=== PATIENT | female | born 1945 | race Caucasian/White ===

== ENCOUNTER 2023-08-20 12:49 | Day surgery (SDC) | payer MEDICARE, SELFPAY ==
--- NOTE | 2023-08-20 12:58 | US_ITS ---
The [address] [address] Patient Name: SHADI CEDENO MRN: [id number] date: 1945 Sex: F Assigned Patient Location: US Current Patient Location: Accession/Order Number: [id number] Exam Date: 08/20/2023 13:02 Report Date: 08/20/2023 15:27 At the request of: ABEL PYLE Procedure: US biopsy thyroid EXAMINATION: US biopsy thyroid, US biopsy FNA add lesion HISTORY: thyroid nodule COMPARISON: No relevant comparison available. TECHNIQUE: After obtaining informed consent, an ultrasound-guided biopsy was performed in the usual sterile manner. FINDINGS: NODULE #1: IMAGING: Ultrasound BIOPSY NEEDLE: 25-gauge 2 inch SPECIMEN TYPE, #, LOCATION: 3 fine-needle aspirates, 1.2 cm left thyroid nodule with microcalcifications MEDICATION: 2 cc 1% buffered lidocaine COMPLICATIONS: None. LABORATORY: Pathology and molecular testing is pending OTHER: Negative. NODULE #2: IMAGING: Ultrasound BIOPSY NEEDLE: 25-gauge 2 inch SPECIMEN TYPE, #, LOCATION: 3 fine-needle aspirates, 2.7 x 3.5 cm right thyroid nodule MEDICATION: 2 cc 1% buffered lidocaine COMPLICATIONS: None. LABORATORY: Pathology and molecular testing is pending OTHER: Negative. US/US biopsy thyroid IMPRESSION: Uneventful ultrasound guided biopsy of 2 separate thyroid nodules, one on the right and 1 on the left. The patient was instructed to obtain follow up care and biopsy results from the referring physician. Electronically authenticated by: SUSAN SCHILLING Date: 08/20/2023 15:27
--- NOTE | 2023-08-20 13:02 | US_ITS ---
The [address] [address] Patient Name: SHADI CEDENO MRN: [id number] date: 1945 Sex: F Assigned Patient Location: US Current Patient Location: Accession/Order Number: [id number] Exam Date: 08/20/2023 13:02 Report Date: 08/20/2023 15:27 At the request of: ABEL PYLE Procedure: US biopsy FNA add lesion EXAMINATION: US biopsy thyroid, US biopsy FNA add lesion HISTORY: thyroid nodule COMPARISON: No relevant comparison available. TECHNIQUE: After obtaining informed consent, an ultrasound-guided biopsy was performed in the usual sterile manner. FINDINGS: NODULE #1: IMAGING: Ultrasound BIOPSY NEEDLE: 25-gauge 2 inch SPECIMEN TYPE, #, LOCATION: 3 fine-needle aspirates, 1.2 cm left thyroid nodule with microcalcifications MEDICATION: 2 cc 1% buffered lidocaine COMPLICATIONS: None. LABORATORY: Pathology and molecular testing is pending OTHER: Negative. NODULE #2: IMAGING: Ultrasound BIOPSY NEEDLE: 25-gauge 2 inch SPECIMEN TYPE, #, LOCATION: 3 fine-needle aspirates, 2.7 x 3.5 cm right thyroid nodule MEDICATION: 2 cc 1% buffered lidocaine COMPLICATIONS: None. LABORATORY: Pathology and molecular testing is pending OTHER: Negative. US/US biopsy FNA add lesion IMPRESSION: Uneventful ultrasound guided biopsy of 2 separate thyroid nodules, one on the right and 1 on the left. The patient was instructed to obtain follow up care and biopsy results from the referring physician. Electronically authenticated by: SUSAN SCHILLING Date: 08/20/2023 15:27
[2023-08-20] MEDS: LIDOCAINE HCL 10 ML, SODIUM BICARBONATE 1 MEQ INJ (15:16)
== END 2023-08-20 14:00 | disposition home or self-care (01) ==
LOC: US 12:50
PROVIDERS: Radiology Diagnostic Radiology; PCP Internal Medicine; Visit Provider Otolaryngology
DX: E04.1 Nontoxic single thyroid nodule (principal)
CPT/HCPCS: 10005; 10006; 88173

== ENCOUNTER 2025-02-28 08:28 | Outpatient (OUT) | payer MEDICARE, SELFPAY ==
--- NOTE | 2025-02-28 08:38 | MR_ITS ---
The [address] [address] Patient Name: SHADI CEDENO MRN: [id number] date: 1945 Sex: F Assigned Patient Location: LAB Current Patient Location: LAB Accession/Order Number: [id number] Exam Date: 02/28/2025 15:29 Report Date: 02/28/2025 15:36 At the request of: NON-STAFF PHYSICIAN Procedure: MR pelvis wo/w con MRI OF THE PELVIS WITH AND WITHOUT CONTRAST: CLINICAL HISTORY: History of cervical cancer, vaginal bleeding COMPARISON: Vaginal bleeding. History of cervical cancer. TECHNIQUE: Multisequence, multiplanar imaging of the pelvis was obtained before and after the use of IV contrast. FINDINGS: The uterus is atrophic measuring 4.2 x 1.8 x 3.2 cm. The myometrium is heterogenous in echotexture without definitive measurable fibroid. Endometrium is not clearly seen but does not appear to be thickened. No gross cervical mass is noted. Vagina is grossly unremarkable. Ovaries are not visualized. Small amount of free fluid seen within the pelvis. There appears be partially visualized right-sided hydroureter with a questionable obstructive or enhancing mass at the level of the right UVJ. No lymphadenopathy is seen. Urinary bladder is unremarkable. Urethra is unremarkable. Visualized small bowel appears nondilated. Visualized colon demonstrate no focal abnormality. Osseous structures demonstrate degenerative change without focal lesion. MR/MR pelvis wo/w con IMPRESSION: ATROPHIC UTERUS WITHOUT FOCAL ABNORMALITY. OVARIES NOT VISUALIZED. NO ADNEXAL MASS. PARTIALLY VISUALIZED RIGHT-SIDED HYDROURETER WITH POTENTIAL OBSTRUCTING ENHANCING MASS AT THE RIGHT UVJ. CORRELATION WITH CYSTOSCOPY IS SUGGESTED. SMALL AMOUNT OF FREE FLUID SEEN WITHIN THE PELVIS OF UNCERTAIN ETIOLOGY. Impression dictated by: Koby Torres Jr., D.O. 02/28/2025 3:36 PM Dictation Location: [place] [address] Electronically authenticated by: [id number] Y Date: 02/28/2025 15:36
--- OUTSIDE RECORDS SUMMARY | 2025-02-28 08:42 | XMS_ITS | CCD ---
Author Organization [facility] CliniSymi Care Team Providers Care Wall Taper Name Role Phone LASHANDA, DR ROMAN Consulting Unavailable TIMMIS, DR ROMAN Attending Unavailable TIMMIS, DR ROMAN Admitting Unavailable LETY, DR RODRIGUEZ Consulting Unavailable WEST, DR SUSAN Brady Consulting Unavailable TIMMIS, DR ROMAN Consulting Unavailable LETY, DR RODRIGUEZ Primary Care Unavailable TIMMIS, DR ROMAN Attending Unavailable TIMMIS, DR ROMAN Admitting Unavailable ZIEBER, DR CHARLY Nesbitt Consulting Unavailable ZIEBER, DR CHARLY Nesbitt Consulting Unavailable LETY, DR RODRIGUEZ Primary Care Unavailable JOHANA GLASER Attending Unavailable JOHANA GLASER Admitting Unavailable JOHANA GLASER Consulting Unavailable LETY, DR RODRIGUEZ Primary Care Unavailable ROXIE LAGOS Consulting Unavailable ROXIE LAGOS Attending Unavailable ROXIE LAGOS Admitting Unavailable Paulino Ramirez Consulting Unavailable MD Abel Pyle Jr Attending Provider Drew Castillo MD Unavailable Drew Nuno MD Primary Care Provider Abel Pyle Jr Attending Unavailable Abel Pyle Jr Admitting Unavailable Drew Nuno MD Unavailable ABEL PYLE Referring Unavailable JOHANA GLASER Primary Care Unavailable ABEL PYLE Referring Unavailable JOHANA GLASER Primary Care Unavailable Unavailable Primary Care Provider Unavailabl e ABEL PYLE Attending Unavailable NEIL VAZQUEZ Attending Unavailable ABEL PYLE Attending Unavailable NEIL VAZQUEZ Attending Unavailable NEIL VAZQUEZ Referring Unavailable DREW NUNO Attending Unavailable TORY HAND Attending Unavailable DREW NUNO II Referring Unavailable Medications Current Medications Medication Drug Class(es) Dates Sig (Normalized) Sig (Original) amLODIPine 10 mg oral tablet (16 sources) Dihydropyridine Calcium Channel Thang Start: 12-14-2023 End: 12-22-2024 take 1 tablet by mouth once daily amLODIPine (NORVASC) 10 mg tablet Take 10 mg by mouth once daily. 08/14/2023 Active iv contrast (will be provided with radiology test) (1 source) Start: 02-01-2025 End: 02-02-2025 iv contrast (will be provided with radiology test) Indications: History of cervical cancer , Vaginal bleeding , Vaginal adhesions MRI Female Pelvis Inject, intravenously, once for 1 dose. No IV access, insert saline lock prior to the beginning of sedation, infusion, injection of imaging exam. Discontinue saline lock post exam. If Pt has a central line or IVAD, may access for administration according to line specific nursing protocol. Once exam is complete flush line and de-access according to line specific nursing protocol in the MR contrast administration guidelines link. 1 each 02/01/2025 02/02/2025 Active lisinopril 10 mg oral tablet (20 sources) Angiotensin Converting Enzyme Inhibitor Start: 07-22-2023 End: 09-16-2023 lisinopril (ZESTRIL) 10 mg tablet Take by mouth. 08/14/2023 Active methIMAzole 5 mg oral tablet (16 sources) Thyroid Hormone Synthesis Inhibitor Start: 04-20-2023 methIMAzole (TAPAZOLE) 5 mg tablet Take 5 mg by mouth. 08/14/2023 Active Surgical Lubricant Jelly gel (3 sources) Start: 02-01-2025 Surgical Lubricant Jelly gel Indications: History of cervical cancer , Vaginal bleeding , Vaginal adhesions For MRI Female Pelvis, MRI department to provide. Administer intra-vaginal Surgilube immediately prior the MRI procedure (total amount to patient toleranace). 5 g 02/01/2025 Active Problems Active Problems Problem Classification Problem Date Documented Da te Episodic/Chronic Anal and rectal conditions (1 source) Radiation proctitis; Translations: [Radiation proctitis] 02-01-2025 Episodic Cancer of cervix (10 sources) Malignant neoplasm of endocervix; Translations: [Malignant neoplasm of endocervix] Onset: 06-04-2016 09-19-2024 Chronic Cancer of cervix (4 sources) History of malignant neoplasm of cervix; Translations: [Personal history of malignant neoplasm of cervix uteri] Onset: 02-01-2025 02-01-2025 Episodic Cardiac dysrhythmias (20 sources) Premature atrial contraction; Translations: [Atrial premature depolarization] Onset: 07-22-2023 07-22-2023 Chronic Essential hypertension (13 sources) Essential hypertension; Translations: [Essential (primary) hypertension] Onset: 07-22-2023 07-22-2023 Chronic Genitourinary symptoms and ill-defined conditions (1 source) Urinary incontinence; Translations: [Other specified urinary incontinence] 02-01-2025 Chronic Hemorrhoids (1 source) Hemorrhoids; Translations: [Unspecified hemorrhoids] 02-01-2025 Episodic Nutritional deficiencies (10 sources) Malnutrition (calorie); Translations: [Moderate protein-calorie malnutrition] Onset: 07-09-2016 09-19-2024 Chronic Other female genital disorders (2 sources) Vaginal bleeding; Translations: [Abnormal uterine and vaginal bleeding, unspecified] 02-01-2025 Chronic Other female genital disorders (2 sources) Vaginal adhesions; Translations: [Stricture and atresia of vagina] 02-01-2025 Episodic Other screening for suspected conditions (not mental disorders or infectious disease) (13 sources) Ultrasound scan abnormal; Translations: [Abnormal findings on diagnostic imaging of other specified body structures] Onset: 07-22-2023 07-22-2023 Chronic Other screening for suspected conditions (not mental disorders or infectious disease) (5 sources) Encounter for screening mammogram for malignant neoplasm of breast; Translations: [Screening due] Onset: 10-10-2021 Episodic Residual codes; unclassified (1 source) Family history of malignant neoplasm of trachea, bronchus and lung; Translations: [FAM HX MALIG NEOPLSM TRACH BRON LNG] Onset: 10-14-2021 Episodic Thyroid disorders (20 sources) Thyrotoxicosis, unspecified without thyrotoxic crisis or storm; Translations: [Nontoxic single thyroid nodule] Onset: 11-26-2020 Chronic Past or Other Problems Problem Classification Problem Date Documented Da te Episodic/Chronic Abdominal pain (3 sources) Lower abdominal pain, unspecified; Translations: [LOWER ABDOMINAL PAIN UNSPECIFIED] Onset: 04-27-2021 Episodic Calculus of urinary tract (1 source) Calculus of ureter; Translations: [CALCULUS OF URETER] Onset: 04-29-2021 Episodic Results Test Name Value Interpretation [facility] ([facility]) MEENU HOLDER ([id number]) 1945 F Date Time Provider Department 02/09/25 TORY HAND During your visit today, we recorded the following information about you: Tory Hand APRN.KAYLIE 02/09/2025 11:29 AM Signed Called patient to advise of negative pap results and + bacteria. Patient denies symptoms of odor or discharge. Advise to call if symptoms occur. No need to treat. Tory Hand APRN.KAYLIE Allergies As of Date: 02/09/2025 (No Known Allergies) Date Reviewed: 02/01/2025 Reviewed by: Aurora Santana MA - Fully Assessed Primary Visit Diagnosis:History of cervical cancer [Z85.41] Prescriptions as of 02/09/2025 - lisinopril (ZESTRIL) 10 mg tablet Take by mouth. - amLODIPine (NORVASC) 10 mg tablet Take 10 mg by mouth once daily. - methIMAzole (TAPAZOLE) 5 mg tablet Take 5 mg by mouth. - Surgical Lubricant Jelly gel For MRI Female Pelvis, MRI department to provide. Administer intra-vaginal Surgilube immediately prior the MRI procedure (total amount to patient toleranace). Problem List As Of Date 02/09/2025 Noted Resolved Cancer of endocervix (HCC) [C53.0] 06/04/2016 Malnutrition of moderate degree (HCC) [E44.0] 07/09/2016 Encounter Status:Closed by TORY HAND on 02/09/25 [facility] CNOVSPon 02-01-2025 CNOVSP Visit (SP) Office (GYNOSA) MEENU HOLDER ([id number]) 1945 F Date Time Provider Department 02/01/25 11:00 AM PEACE TORYNehal DUGGAN During your visit today, we recorded the following information about you: Temperature Pulse Respiration Blood pressure 97.6 degrees 65/minute 16/minute 138/75 Weight 54.7 kg Peace Tory, MARGARETH.LEARNING SUPPORT AIDE 02/01/2025 11:51 AM Signed DATE OF SERVICE: 02/01/2025 PROBLEM: Meenu Holder is a consult from Dr. Nuno for evaluation of history of cervical cancer. HPI: Ms. Holder is a 79 year old female who has a past medical history of Cervix cancer (HCC) (2017), HTN (hypertension), Hyperthyroidism, Multinodular goiter, PAC (premature atrial contraction), and Post-menopausal. HISTORY OF ILLNESS- 05/21/2016-[facility] cervical biopsies Dr. Rodriguez FINAL DIAGNOSIS 1. Endometrium, curettage (A) - Fragments of invasive moderately differentiated non-keratinizing squamous cell carcinoma. 2. Endocervix, curettage (B) - Fragments of moderately differentiated non-keratinizing squamous cell carcinoma. 1) Primary radiation with weekly cisplatin s/p 6 weeks s/p EBRT 54 Gy in 30 fx from 06/17/16 - 07/29/16, followed by 30 Gy in 5 fx from 07/30/2016 to 08/15/2016 Patient is a 79-year-old female with a history of stage IIB cervical cancer, who underwent primary chemoradiation therapy in 2017. She has been LENI since her last Pap test in 2019. She was referred back to our service by her PCP for continued follow-up after a routine exam. She reports no chest pain, shortness of breath, new abdominal pain, or vaginal bleeding. She does experience occasional diarrhea, which she manages with Imodium before meals, particularly when consuming certain foods. She also reports urinary frequency and nocturnal leakage, for which she wears a pad at night. She has not had a colonoscopy and has declined previous recommendations for one. IMAGING: CT CHEST: No results found. CT ABD/PELVIS: No results found. PET/CT 11/13/2016 IMPRESSION: 1. Significant positive response to interval therapy with decrease in size of cervical mass which now demonstrates no residual FDG hypermetabolism. 2. No evidence of FDG avid lymphadenopathy or distal metastatic disease. 3. New FDG uptake within the right upper sacrum corresponding to insufficiency fracture on recent MRI. 4. Slightly asymmetric FDG uptake within the tonsils avidity is exam, right greater than left, with overall decreased intensity compared to the prior study. This is is likely reactive/inflammatory in nature. Clinical correlation recommended. 5. Additional findings on low-dose CT as above. LABS: No data to display PATHOLOGY: No results found for: FINALDIAGNOS HISTORIES: PAST GYNECOLOGIC HISTORY: OB History Gravida3 Para3 Term0 Preterm0 AB0 Living3 SAB0 IAB0 Ectopic0 Multiple0 Live Births0 LMP: No LMP recorded. Patient is postmenopausal. Hormonal contraceptives: N/A . HRT use: N/A . History of abnormal pap: Yes, see above Last pap/HPV: 07/18/2020 PAST SURGICAL HISTORY Procedure Laterality Date PAST SURGICAL HISTORY OF oral surgery PAST MEDICAL HISTORY Diagnosis Date Cervix cancer (HCC) 2016 HTN (hypertension) Hyperthyroidism Multinodular goiter PAC (premature atrial contraction) Post-menopausal FAMILY HISTORY Problem Relation Age of Onset other (Dementia) Mother Heart Father PA, Hypertension Sister Cancer Brother Lung cancer AND Heart disease, Cancer Paternal Grandfather Cancer Grandchild Family history of breast, ovarian, uterine or colon cancer: No Family history of VTE: No SOCIAL HISTORY Social History Tobacco Use Smoking status: Never Smokeless tobacco: Never Substance Use Topics Alcohol use: No Drug use: No Occupation: retired Marital Status: Single HEALTH MAINTENANCE: Last mammogram: 10/10/2021-negative Last colonoscopy: never? SUBJECTIVE/ROS: 02/01/25-Patient states she feels good overall. Patient reports no bowel or bladder issues. No bleeding, discharge, or pain. No shortness of breath, cough, or chest pain. Cardiovascular: (-) chest pain Respiratory: (-) shortness of breath Gastrointestinal: (+) diarrhea, (-) abdominal pain Genitourinary: (+) urinary frequency, (+) nocturnal urinary incontinence, (-) vaginal bleeding OBJECTIVE: VITALS: BP 138/75 Pulse 65 Temp 36.4 ?C (97.6 ?F) (Temporal) Resp 16 Wt 54.7 kg (120 lb 9.5 oz) SpO2 96% BMI 22.98 kg/m? GENERAL: Patient is a well developed, well nourished female. She is alert, oriented, pleasant, and cooperative. SKIN: Color, texture, turgor normal. No rashes or lesions. HEENT: Normocephalic, atraumatic, mucus membranes moist, and no lesions NECK: Supple, no adenopathy; thyroid symmetric, normal size, no bruits, Not examined LUNGS: Clear to auscultation bilat (more content not included)... Normal [facility] HIGH RISK HUMAN PAPILLOMA MECHE (HPV), PCR FOR DETECTION AND GENOTYPINGon 02-01-2025 HPV 16 Ag Ql (Unsp spec) Not detected Normal Not detected [facility] Comment on above: Order Comment: Speci men Type: FLUID SPECIMEN Ordering Facility: [facility] Address: [address] [place] [address] Performed By: #### H PVHRT #### [facility] CLIA [id number] [address] [place] [address] [place] HPV 18 Ag Ql (Unsp spec) Not detected Normal Not detected [facility] Comment on above: Order Comment: Speci glendy Type: FLUID SPECIMEN Ordering Facility: [facility] Address: [address] [place] [address] Performed By: #### H PVHRT #### [facility] CLIA [id number] [address] [place] [address] [place] HPV 31+33+35+39+45+51+5 2+56+58+59+66+68 DNA GIANNI+probe Ql (Cvx) Not detected Normal Not detected [facility] Comment on above: Order Comment: Speci men Type: FLUID SPECIMEN Ordering Facility: [facility] Address: [address] [place] [address] Result Comment: High Risk HPV Other Type includes HPV types 31, 33, 35, 39, 45, 51, 52, 56, 58, 59, 66 and 68. Performed By: #### H PVHRT #### [facility] CLIA [id number] [address] [place] [address] [place] PAP TESTon 02-01-2025 ADEQUACY Satisfactory for interpretation. Normal [facility] Comment on above: Order Comment: Speci men Type: FLUID SPECIMEN Ordering Facility: [facility] Address: [address] [place] [address] Performed By: #### L [id number] #### [facility] CLIA [id number] [address] [place] [address] [place] CASE REPORT Normal [facility] Comment on above: Order Comment: Speci men Type: FLUID SPECIMEN Ordering Facility: [facility] Address: [address] [place] [address] Result Comment: Gyne cologic Cytology Report Case: [id number] Authorizing Provider: Tory Hand APRN.LEARNING SUPPORT AIDE Collected: 02/01/2025 12:59 PM Ordering Location: Gynecology Oncology Received: 02/01/2025 01:01 PM First Screen: Quynh Corcoran, CT, ASCP Pathologist: Laine Capps MD Specimen: Pap Test, ThinPrep, Vagina Performed By: #### L [id number] #### [facility] CLIA [id number] [address] [place] [address] [place] CLINICAL HISTORY, CYTOLOGY, BUSINESS AND MARKETING TEACHER Normal [facility] Comment on above: Order Comment: Speci men Type: FLUID SPECIMEN Ordering Facility: [facility] Address: [address] [place] [address] Result Comment: Hist ory of Malignancy (Describe) Menopausal Radiation Therapy (Indicate Year) cervix cancer Performed By: #### L [id number] #### [facility] CLIA [id number] [address] [place] [address] [place] CYTOLOGY PAP OTHER INTERPRETATION Predominance of coccobacilli consistent with shift in vaginal claudia. Normal [facility] Comment on above: Order Comment: Speci men Type: FLUID SPECIMEN Ordering Facility: [facility] Address: [address] [place] [address] Performed By: #### L [id number] #### [facility] CLIA [id number] [address] [place] [address] [place] FINAL PERFORMING LAB Normal [facility] Comment on above: Order Comment: Speci men Type: FLUID SPECIMEN Ordering Facility: [facility] Address: [address] [place] [address] Result Comment: Tech nical component, extrusion process operator screening performed at: [facility], [address] [place] [address] [place] [address] CLIA: [id number] Diagnostic interpretation performed at: [facility], [address] [place], [place] [id number] CLIA# [id number] Fuel Cell Engineer: Brodie Amaya MD Performed By: #### L [id number] #### [facility] CLIA [id number] [address] [place] [address] [place] INTERPRETATION, CYTOLOGY, BUSINESS AND MARKETING TEACHER Normal [facility] Comment on above: Order Comment: Speci men Type: FLUID SPECIMEN Ordering Facility: [facility] Address: [address] [place] [address] Result Comment: Nega tive for intraepithelial lesion or malignancy. at 1709 EDT Performed By: #### L [id number] #### [facility] CLIA [id number] [address] [place] [address] [place] PAP DISCLAIMER COMMENT The Pap Smear is a screening test for cervical cancer. False negative results occur with all screening tests, emphasizing the need for rescreening at recommended intervals, and clinical correlation. Normal [facility] Comment on above: Order Comment: Speci men Type: FLUID SPECIMEN Ordering Facility: [facility] Address: [address] [place] [address] Performed By: #### L [id number] #### [facility] CLIA [id number] [address] [place], [place] [id number] [facility] PAP GARAGE DOOR OPENER INSTALLER COMMENT This specimen has been analyzed by the FDA-approved Buggl System, which uses digital imaging and an enhanced artificial intelligence image analysis algorithm to identify de la rosa of interest on the microscopic slide, to assist the live in caregiver and pathologist in evaluating cells on ThinPrep Pap tests. Following analysis, de la rosa of interest on the microscopic slide selected by the algorithm are reviewed by a live in caregiver. If a sample requires hierarchical review, the pathologist will review the same de la rosa of interest selected by the algorithm prior to final interpretation. Normal [facility] Comment on above: Order Comment: Speci men Type: FLUID SPECIMEN Ordering Facility: [facility] Address: [address] [place] [address] Performed By: #### L [id number] #### [facility] CLIA [id number] [address] [place] [address] OF [facility] 12-28-2024 [facility] MEENU [facility] ([id number]) 1945 F Date Time Provider Department 12/28/24 LUNA VARMA [facility] During your visit today, we recorded the following information about you: Miladis Johnson 12/28/2024 1:32 PM Signed Hi there, We had gotten a referral for Meenu from Dr. Nuno. Can you please review and see what she needs. Thank you. Miladis Bhakta 12/28/2024 2:58 PM Signed LM for patient to call back and confirm message for 01/25/25 at 1pm. Per Miladis Coy 12/29/2024 9:16 AM Signed Spoke to Meenu, confirmed date and time. Allergies As of Date: 12/28/2024 (No Known Allergies) Date Reviewed: 07/11/2020 Reviewed by: Monie Vizcarra (Rn), RN - Fully Assessed Problem List As Of Date 12/28/2024 Noted Resolved Cancer of endocervix (HCC) [C53.0] 06/04/2016 Malnutrition of moderate degree (HCC) [E44.0] 07/09/2016 Encounter Status:Closed by MILADIS JOHNSON on 12/28/24 Normal [facility] METABOLIC PANE Margarito 12-24-2024 Albumin [Mass/Vol] 4.4 g/dL Normal 3.6-5.1 [facility] Comment on above: Performed By: #### 7 600, [id number] #### [facility] [place] [address] Legal Associate: Kodi Woodall MD Albumin/Globulin [Mass ratio] 1.9 {ratio} Normal 1.0-2.5 [facility] Comment on above: Performed By: #### 7 600, [id number] #### [facility] [place] [address] Legal Associate: Kodi Woodall MD ALP [Catalytic activity/Vol] 81 U/L Normal 37-153 [facility] Comment on above: Performed By: #### 7 600, 84068 #### [facility] [place] [address] Legal Associate: Kodi Woodall MD ALT [Catalytic activity/Vol] 6 U/L Normal 6-29 [facility] Comment on above: Performed By: #### 7 600, 68136 #### [facility] [place] [address] Legal Associate: Kodi Woodall MD AST [Catalytic activity/Vol] 14 U/L Normal 10-35 [facility] Comment on above: Performed By: #### 7 600, 46136 #### [facility] [place] [address] Legal Associate: Kodi Woodall MD Bilirubin [Mass/Vol] 0.7 mg/dL Normal 0.2-1.2 [facility] Comment on above: Performed By: #### 7 600, 63320 #### [facility] [place] [address] Legal Associate: Kodi Woodall MD BUN/CREATININE RATIO SEE NOTE: Normal 6-22 [facility] Comment on above: Result Comment: Not Reported: BUN and Creatinine are within reference range. Performed By: #### 7 600, [id number] #### [facility] of [address], [address] [place] [address] Legal Associate: Kodi Woodall MD Calcium [Mass/Vol] 9.6 mg/dL Normal 8.6-10.4 [facility] Comment on above: Performed By: #### 7 600, 61253 #### [facility] [place] [address] Legal Associate: Kodi Woodall MD Chloride [Moles/Vol] 104 mmol/L Normal 98-110 [facility] Comment on above: Performed By: #### 7 600, 70910 #### [facility] [address], [address] [place] [address] Legal Associate: Kodi Woodall MD CO2 [Moles/Vol] 27 mmol/L Normal 20-32 [facility] Comment on above: Performed By: #### 7 600, 79884 #### [facility] [place] [address] Legal Associate: Kodi Woodall MD Creatinine [Mass/Vol] 0.92 mg/dL Normal 0.60-1.00 [facility] Comment on above: Performed By: #### 7 600, 32353 #### [facility] of [place] [address] Legal Associate: Kodi Woodall MD GFR/1.73 sq M.predicted among non-blacks MDRD (S/P/Bld) [Vol rate/Area] 64 mL/min/{1.73_m2} Normal > OR = 60 [facility] Comment on above: Performed By: #### 7 600, 32771 #### [facility] of [place] [address] Legal Associate: Kodi Woodall MD Globulin (S) [Mass/Vol] 2.3 g/dL Normal 1.9-3.7 [facility] Comment on above: Performed By: #### 7 600, 78112 #### [facility] of [place] [address] Legal Associate: Kodi Woodall MD Glucose [Mass/Vol] 93 mg/dL Normal 65-99 [facility] Comment on above: Result Comment: Fasting reference interval Performed By: #### 7 600, 45069 #### [facility] [place] [address] Legal Associate: Kodi Woodall MD Potassium [Moles/Vol] 3.8 mmol/L Normal 3.5-5.3 [facility] Comment on above: Performed By: #### 7 600, 12698 #### [facility] of [place] [address] Legal Associate: Kodi Woodall MD Protein [Mass/Vol] 6.7 g/dL Normal 6.1-8.1 [facility] Comment on above: Performed By: #### 7 600, 17055 #### [facility] of [place] [address] Legal Associate: Kodi Woodall MD Sodium [Moles/Vol] 140 mmol/L Normal 135-146 [facility] Comment on above: Performed By: #### 7 600, 23357 #### [facility] of [place] [address] Legal Associate: Kodi Woodall MD Urea nitrogen [Mass/Vol] 18 mg/dL Normal 7-25 [facility] Comment on above: Performed By: #### 7 600, 71320 #### [facility] of [place] [address] Legal Associate: Kodi Woodall MD LIPID PANEL, [facility] 05- Cholesterol [Mass/Vol] 214 mg/dL High <200 [facility] Comment on above: Order Comment: FASTI NG:NO FASTING: NO Performed By: #### 7 600, 14464 #### [facility] [place] [address] Legal Associate: Kodi Woodall MD Cholesterol in HDL [Mass/Vol] 69 mg/dL Normal > OR = 50 [facility] Comment on above: Order Comment: FASTI NG:NO FASTING: NO Performed By: #### 7 600, 35080 #### [facility] [address], [address] [place] [address] Legal Associate: Kodi Woodall MD Cholesterol in LDL [Mass/Vol] 129 mg/dL High [facility] Comment on above: Order Comment: FASTI NG:NO FASTING: NO Result Comment: Refe rence range: <100 Desirable range <100 mg/dL for primary prevention; <70 mg/dL for patients with CHD or diabetic patients with > or = 2 CHD risk factors. LDL-C is now calculated using the Jerson calculation, which is a validated novel method providing better accuracy than the Friedewald equation in the estimation of LDL-C. Vijay SS et al. ARIEL. 2013;310(19): 7330-4005 (http://education.WorkAmerica/faq/NGD261) Performed By: #### 7 600, [id number] #### [facility] [address], [address] [place] [address] Legal Associate: Kodi Woodall MD Cholesterol.total/C holesterol in HDL [Mass ratio] 3.1 {ratio} Normal <5.0 [facility] Comment on above: Order Comment: FASTI NG:NO FASTING: NO Performed By: #### 7 600, [id number] #### [facility] [place] [address] Legal Associate: Kodi Woodall MD NON HDL CHOLESTEROL 145 mg/dL (calc) High <130 [facility] Comment on above: Order Comment: FASTI NG:NO FASTING: NO Result Comment: For patients with diabetes plus 1 major ASCVD risk factor, treating to a non-HDL-C goal of <100 mg/dL (LDL-C of <70 mg/dL) is considered a therapeutic option. Performed By: #### 7 600, [id number] #### [facility] [address], [address] [place] [address] Legal Associate: Kodi Woodall MD Triglyceride [Mass/Vol] 65 mg/dL Normal <150 [facility] Comment on above: Order Comment: FASTI NG:NO FASTING: NO Performed By: #### 7 600, [id number] #### [facility] [address], [address] [place] [address] Legal Associate: Kodi Woodall MD US THYROIDon 09-20-2024 US THYROID US THYROID CLINICAL INFORMATION: Multinodular goiter; Thyroid nodule. TECHNIQUE: Real time sonography of the thyroid gland performed. COMPARISON: 01/11/2024 FINDINGS: Right Lobe Size: 5.5 x 2.4 x 2.7 cm Left Lobe Size: 5.0 x 1.9 x 1.4 cm Isthmus: 0.3 cm Nodules: 1.) Size: 1.8 x 2.0 x 1.1 cm Laterality: right Location: sup Composition: mixed cystic/solid Echogenicity: hypoechoic Taller than Wide: no Margins: smooth Echogenic Foci: no Total Points: 3 TI-RADS Level TR3, ultrasound follow-up in 2 year 2.) Size: 2.8 x 3.5 x 1.8 cm, measured slightly differently from prior, measuring 2.8 x 2.3 x 1.6 cm on manual remeasurement, unchanged Laterality: right Location: inf Composition: Mixed cystic/solid -1 Echogenicity: isoechoic - 1 Shape: Not taller than wide -0 Margins: Smooth - 0 Echogenic foci: None -0 ACR TI RADS risk category: TR2 (2) ACR TI RADS Recommendation: no further follow-up 3.) Size: 3.5 x 2.2 x 1.3 cm Laterality: right Location: med/sup Composition: Mixed cystic/solid -1 Echogenicity: isoechoic - 1 Shape: Not taller than wide -0 Margins: Smooth - 0 Echogenic foci: None -0 ACR TI RADS risk category: TR2 (2) ACR TI RADS Recommendation: no further follow-up 4.) Size: 1.0 x 1.1 x 0.5 cm Laterality: left Location: sup Composition: mixed cystic/solid Echogenicity: hypoechoic Taller than Wide: no Margins: smooth Echogenic Foci: no Total Points: 3 TI-RADS Level TR3, no follow-up needed 5.) Size: 1.2 x 0.8 x 0.6 cm Laterality: left Location: mid Composition: Mixed cystic/solid -1 Echogenicity: Hypoechoic - 2 Shape: Not taller than wide -0 Margins: Smooth - 0 Echogenic foci: None -0 ACR TI RADS risk category: TR3 (3) ACR TI RADS Recommendation: no further follow-up 6.) Size: 2.2 x 1.7 x 0.9 cm Laterality: left Location: med/inf Composition: Mixed cystic/solid -1 Echogenicity: Hypoechoic - 2 Shape: Not taller than wide -0 Margins: Smooth - 0 Echogenic foci: None -0 ACR TI RADS risk category: TR3 (3) ACR TI RADS Recommendation: Ultrasound follow-up 2 year 7.) Size: 1.3 x 1.1 x 0.4 cm Laterality: isthmus Location: left isthmus Composition: Spongiform, no dedicated follow-up needed IMPRESSION: Unchanged thyroid nodules, continued follow-up in 2 years is recommended. ACR TI-RADS recommendations: TR5 (greater than or equal to 7 points) - FNA if greater than or equal to 1cm, follow-up ultrasound if nodule is 0.5 - 0.9 cm every year for 5 years. TR4 (4 - 6 points) - FNA if greater than or equal to 1.5 cm, follow-up ultrasound if nodule is 1 -1.4 cm at 1, 2, 3 and 5 years. TR3 (3 points) - FNA if greater than or equal to 2.5 cm, follow-up ultrasound if nodule is 1.5 -2.4 cm at 1, 3 and 5 years. TR2 (2 points) & TR1 (0 points) - No FNA or follow-up. Finalized by Chucky Bejarano on 09/20/2024 10:[address] [facility] US THYROIDon 01-14-2024 US THYROID US THYROID CLINICAL INFORMATION: Thyroid nodule. TECHNIQUE: Real time sonography of the thyroid gland performed. COMPARISON: 06/24/2023 FINDINGS: Thyroid size: Normal Right thyroid lobe measures: 5.7 x 2.4 x 2.4 cm Left thyroid lobe measures: 1.5 x 2.0 cm Overall thyroid texture: Heterogeneous Nodule # 1 Maximum size/location: There is a 1.9 x 1.8 x 1.1 cm nodule right lobe of thyroid gland Composition: Mixed cystic/solid -1 Echogenicity: Hypoechoic - 2 Shape: Not taller than wide -0 Margins: Smooth - 0 Echogenic foci: None -0 Additional echogenic foci: None -0 Significant change in size (greater than 20% 2 dimensions): No Change in features: No Change in ACR TI RADS risk category: No ACR TI-RADS total points: 3 ACR TI RADS risk category: TR3 (3) ACR TI RADS Recommendation: Ultrasound follow-up 1 year Nodule # 2 Maximum size/location: There is a 2.3 x 2.6 x 1.8 cm nodule in the right lobe of thyroid gland Composition: Solid -2 Echogenicity: Hypoechoic - 2 Shape: Not taller than wide -0 Margins: Smooth - 0 Echogenic foci: None -0 Additional echogenic foci: None -0 Significant change in size (greater than 20% 2 dimensions): No Change in features: No Change in ACR TI RADS risk category: No ACR TI-RADS total points: 4 ACR TI RADS risk category: TR4 (4-6) ACR TI RADS Recommendation: Ultrasound follow-up 1 year Nodule # 3 Maximum size/location: There is a 2.9 x 2.6 x 1.6 and the nodule in the right lobe of the thyroid gland Composition: Solid -2 Echogenicity: isoechoic - 1 Shape: Not taller than wide -0 Margins: Smooth - 0 Echogenic foci: None -0 Additional echogenic foci: None -0 Significant change in size (greater than 20% 2 dimensions): No Change in features: No Change in ACR TI RADS risk category: No ACR TI-RADS total points: 3 ACR TI RADS risk category: TR3 (3) ACR TI RADS Recommendation: Ultrasound biopsy Nodule # 4 Maximum size/location: There is a 2.2 x 1.0 x 2.4 cm nodule in the left aspect of the isthmus Composition: Solid -2 Echogenicity: isoechoic - 1 Shape: Not taller than wide -0 Margins: Smooth - 0 Echogenic foci: None -0 Additional echogenic foci: None -0 Significant change in size (greater than 20% 2 dimensions): No Change in features: No Change in ACR TI RADS risk category: No ACR TI-RADS total points: 3 ACR TI RADS risk category: TR3 (3) ACR TI RADS Recommendation: Ultrasound follow-up 1 year Additional subcentimeter thyroid nodules are seen and can be followed with yearly ultrasound. IMPRESSION: * 2.9 cm TR 3 nodule right lobe of thyroid gland. Fine-needle aspiration is recommended. * 2.6 cm TR 4 nodule in the right lobe of thyroid gland. Fine-needle aspiration is recommended * Additional thyroid nodules seen scattered throughout the thyroid gland and appears stable. Yearly follow-up examinations recommended. ACR TI-RADS recommendations: TR5 (greater than or equal to 7 points) - FNA if greater than or equal to 1cm, follow-up ultrasound if nodule is 0.5 - 0.9 cm every year for 5 years. TR4 (4 - 6 points) - FNA if greater than or equal to 1.5 cm, follow-up ultrasound if nodule is 1 -1.4 cm at 1, 2, 3 and 5 years. TR3 (3 points) - FNA if greater than or equal to 2.5 cm, follow-up ultrasound if nodule is 1.5 -2.4 cm at 1, 3 and 5 years. TR2 (2 points) & TR1 (0 points) - No FNA or follow-up. Finalized by Susan Figueroa MD on 01/14/2024 10:18 AM [facility] 08-20-2023 L Specimen: [id number] Received: 08/24/23 [facility] [id number] Spec Type: Cytology Subm Dr: ABEL PYLE MD Tissues: A FNA SLIDES NOPATH (RT THYROID) B FNA SLIDES NOPATH (LT THRYOID) Procedures: Cyto Int and Re/2, Cyto Prepstain/2, PAPSTN/10 Age/ Patient Sex Location Account Attending Physician Meenu Holder 78/F LABELL [id number] ABEL PYLE MD SPEC NUM: [id number] RECD: 08/24/23 STATUS: JOSE MEDRANO NUM: [id number] MANUELITO: 08/20/23-[address]: ABEL PYLE MD ENTERED: 08/24/23-1010 [facility] DR: Yessica,Lab SPEC TYPE: Cytology DEPT: [facility] ENTERED BY: [id number] RECV BY: [id number] ORDERED: Cyto Int and Re/2, Cyto Prepstain/2, PAPSTN/10 ORDERED: Cyto Int and Re/2, Cyto Prepstain/2, PAPSTN/10 Supplemental Report Addendum 1 Entered: 09/14/23 Supplemental for findings of molecular testing from [facility] for part B specimen (left mid thyroid nodule): Ensemble portal administrator: Benign (risk of malignancy: <=4%) Expiration rodriguez: N/A Other classifiers: -MTC: Negative -Parathyroid: Negative Addendum Signed (signature on file) Mayte Valladares MD 09/14/23926 -------- -------- Specimen: [id number] Received: 08/24/23 Status: JOSE Medrano Num: [id number] Spec Type: Cytology Subm Dr: ABEL PYLE MD Tissues: A FNA SLIDES NOPATH (RT THYROID) B FNA SLIDES NOPATH (LT THRYOID) Procedures: Cyto Int and Re/2, Cyto Prepstain/2, PAPSTN/10 -------- Patient: Meenu Holder [id number] (Continued) -------- Specimen: [id number] Received: 08/24/23 (Continued) Signed (signature on file) Mayte Valladares MD 08/25/23 1644 -------- Specimen: [id number] Received: 08/24/23 Status: JO[facility] Medrano Num: [id number] Spec Type: Cytology Subm Dr: ABEL PYLE MD Tissues: A FNA SLIDES ILIANA (RT THYROID) B FNA SLIDES HOLLEYATH (LT THRYOID) Procedures: Cyto Int and Re/2, Cyto Prepstain/2, PAPSTN/10 -------- Patient: Meenu Holder [id number] (Continued) -------- Specimen: [id number] Received: 08/24/23-1008 (Continued) Pathological Diagnosis A. Right mid thyroid nodule, FNA cytology - Satisfactory for assessment - The [place] system is category 2: Benign - Many follicular cells in small and occasionally larger groups are present in all smears -Occasional lightly pigmented histiocytes, and occasional hemosiderin pigments, are also admixed - A ThinPrep smear is also reviewed, also showing similar findings - The apparently hypercellular smears also may suggest sampling of the hyperplastic nodule B. Left knee thyroid nodule, FNA cytology: - Adequate for assessment - The [place] system is suspicious for category 3: Suspicious follicular lesion of undetermined significance - Adequate numbers of follicular cells are present in at least 2 smears - The small groups of follicular cells are slightly more compact in one of the smears, and with the associated microacinar appearance, supporting the above interpretation - A ThinPrep smear is also reviewed, also showing similar findings Gross Description Received is A. 30 ml light pink clear fixed fluid said to have been obtained as Right mid thyroid nodule. Thin prep is prepared for microscopic examination. Also received are 4 smeared slides for microscopic examination.(CC/al) Received is B. 29 ml light fluid said to have been obtained as Left mid thyroid nodule. Thin prep is prepared for microscopic examination. -------- Specimen: [id number] Received: 08/24/23 Status: JO[facility] Medrano Num: [id number] Spec Type: Cytology Subm Dr: ABEL PYLE MD Tissues: A FNA SLIDES NOPATH (RT THYROID) B FNA SLIDES NOPATH (LT THRYOID) Procedures: Cyto Int and Re/2, Cyto Prepstain/2, PAPSTN/10 -------- Patient: Meenu Holder Delicia [id number] (Continued) -------- Specimen: [id number] Received: 08/24/23 (Continued) Gross Description (Continued) Signed (signature on file) Mayte Valladares MD 08/25/231643 (more content not included)... [facility] US Thyroidon 02-07-2022 US Thyroid FINDINGS: Right Lobe: 4.3 x 2.3 x 2.2 cm Left Lobe: 4.1 x 1.8 x 1.3 cm Isthmus (Thickness)9 mm Comparison made with prior examination most recent August 07, 2021. Minimal change from prior examinations including upper limits of normal thyroid volume, lobular contours, subtle areas of slight increase in vascularity. The largest T4 nodule remains within the isthmus right of midline, 2.7 x 1.6 x 2.4 cm, prior measurement 2.2 x 2.2 x 1.4 cm and 2.5 x 2.3 x 1.3 cm. IMPRESSION: 1. Stable thyroid appearance, TR4 nodule right of midline within the isthmus demonstrates minimal change in size accounting for slight difference in measuring technique, similar morphology. RECOMMENDATIONS CANCER RISK (ACR TI-RADS 2018) TR1: no FNA required TR1: 0.3% TR2: no FNA required TR2: 1.5 % TR3>: 1.5 cm follow up, >2.5 cm FNA TR3: 4.8 % Follow up 1, 3, 5 years TR4:>1.0 cm follow up >1.5 cm FNA TR4: 9.1 % Follow up: 1, 2, 3 and 5 years TR5:> 0.5 cm follow up, >1.0 cm FNA TR5: 35% Annual follow up for up to 5 years Biopsy is recommended for suspicious lesions (TR3-TR5) with the above size criteria. If there are multiple nodules, the two with the highest ACR TI-RADS grades should be sampled (rather than the two largest) Interval enlargement on follow up is felt to be significant if there is a increase of 20% and 2 mm in two dimensions, or a 50% increase in volume. If the ACR TI-RAD level increases between scans, and interval scan the following year is again recommended. Report reported and signed by Koby Garcia on 02/07/2022 1615 Normal [facility] Specialist Free T3on 10-10-2021 FT3 3.40 pg/mL Normal 2.00-4.40 [facility] Traffic Clerk Comment on above: Performed By: #### F T3, TSH, FT4, HEP #### [facility] [address] [place], [place] [id number] Free T4on 10-10-2021 Free T4 [Mass/Vol] 1.23 ng/dL Normal 0.80-1.80 [facility] Traffic Clerk Comment on above: Performed By: #### F T3, TSH, FT4, HEP #### [facility] [address] [place], [place] [id number] Hepatic Function Panelon Albumin [Mass/Vol] 4.5 g/dL Normal 3.6-5.1 [facility] Comment on above: Performed By: #### F T3, TSH, FT4, HEP #### [facility] [address], [place] [id number] Albumin/Globulin [Mass ratio] 2.0 {ratio} Normal 1.0-2.5 [facility] Comment on above: Performed By: #### F T3, TSH, FT4, HEP #### [facility] [address], [place] [id number] ALP [Catalytic activity/Vol] 85 U/L Normal 35-119 [facility] Comment on above: Performed By: #### F T3, TSH, FT4, HEP #### [facility] [address], [place] [id number] ALT [Catalytic activity/Vol] 11 U/L Normal 6-33 [facility] Comment on above: Result Comment: 07/03 Female reference range changed. Performed By: #### F T3, TSH, FT4, HEP #### [facility] [address], [place] [id number] AST [Catalytic activity/Vol] 15 U/L Normal 9-34 [facility] Comment on above: Performed By: #### F T3, TSH, FT4, HEP #### [facility] [address], [place] [id number] Bilirubin [Mass/Vol] 0.44 mg/dL Normal 0.30-1.20 [facility] Comment on above: Performed By: #### F T3, TSH, FT4, HEP #### [facility] [address], [place] [id number] DBIL <0.2 Normal [facility] Comment on above: Result Comment: Refe rence range change 06/19/2017. Prior reference range 0.1-0.3 mg/dL. Performed By: #### F T3, TSH, FT4, HEP #### [facility] [address], [place] [id number] Globulin (S) [Mass/Vol] 2.3 g/dL Normal 1.9-3.7 [facility] Comment on above: Performed By: #### F T3, TSH, FT4, HEP #### [facility] [address], [place] [id number] Protein [Mass/Vol] 6.8 g/dL Normal 6.1-8.1 [facility] Comment on above: Performed By: #### F T3, TSH, FT4, HEP #### [facility] [address], [place] [id number] Lipid Panelon 10-10-2021 Cholesterol [Mass/Vol] 210 mg/dL High 125-200 [facility] Comment on above: Result Comment: Low risk < 200mg/dL Borderline risk 201-239 mg/dl High risk > or equal to 240 Performed By: #### L IPD #### [facility] [address], [place] [id number] Cholesterol in HDL [Mass/Vol] 59 mg/dL Normal >40 [facility] Comment on above: Result Comment: High Cardiovascular Risk HDL <40 mg/dL Low Cardiovascular Risk HDL > or equal to 60 mg/dl Performed By: #### L IPD #### [facility] [address], [place] [id number] Cholesterol in LDL [Mass/Vol] 131 mg/dL Normal [facility] Comment on above: Result Comment: LDL ATP III CLASSIFICATION LDL less than 100 mg/dl Optimal LDL 100-129 mg/dl Near or above optimal LDL 130-159 Borderline high LDL 160-189 High LDL greater than 189 mg/dl Very High Performed By: #### L IPD #### [facility] [address], [place] [id number] Cholesterol in VLDL [Mass/Vol] 20 mg/dL Normal [facility] Comment on above: Performed By: #### L IPD #### [facility] [address], [place] [id number] Cholesterol.total/C holesterol in HDL [Mass ratio] 4 {ratio} Normal [facility] Comment on above: Performed By: #### L IPD #### [facility] [address], [place] [id number] Triglyceride [Mass/Vol] 98 mg/dL Normal 30-150 [facility] Traffic Clerk Comment on above: Result Comment: TRIG ATPIII CLASSIFICATIONS TRIG less than 150 mg/dl Normal TRIG 150-199 mg/dl Borderline High TRIG 200-500 mg/dl High TRIG greather than 500 mg/dl Very High Performed By: #### L IPD #### [facility] [address], [place] [id number] MG MAMM SCREEN 3D MERYL CADon 10-10-2021 MG MAMM SCREEN 3D MERYL CAD Patient: MEENU HOLDER Exam Date: 10/10/2021 : 1945 Gender:F Ordering : MRS. JOHANA GLASER [employer] Admission #: [id number] Family : Order #: [id number] CLICK HERE TO VIEW EXAM RADIOLOGY REPORT PROCEDURE: MAMMOGRAM SCREENING 3D BILATERAL CAD COMPARISON: MG MAMM SCREEN MERYL W CAD, 07/18/2020. INDICATIONS: Screening mammography Calculator Name NCI Breast Cancer Risk Assessment Tool 5 Year Breast Cancer Risk 1.60% Lifetime Breast Cancer Risk 3.70% Personal Breast Cancer No Personal Ovarian Cancer No Treatments 30 radiation treatments and chemotherapy Family Cancers Brother with lung cancer at age 63. LOCATION: [facility] BREAST COMPOSITION: Scattered areas fibroglandular density. FINDINGS: DIAGNOSTIC CATEGORY 1--NEGATIVE. RIGHT BREAST: No significant suspicious finding. No significant change has occurred. LEFT BREAST: No significant suspicious finding. No significant change has occurred. RECOMMENDATIONS: ROUTINE MAMMOGRAM AND CLINICAL EVALUATION IN 12 MONTHS. PLEASE NOTE: A NORMAL MAMMOGRAM DOES NOT EXCLUDE THE POSSIBILITY OF BREAST CANCER. A CLINICALLY SUSPICIOUS PALPABLE LUMP SHOULD BE BIOPSIED. Dictated by: Charly Walsh M.D. on 10/10/2021 at 15:28 Approved by: Charly Walsh M.D. on 10/10/2021 at 15:32 Normal [facility] TSHon 10-10-2021 TSH 4.030 uIU/mL Normal 0.400-4.500 [facility] Traffic Clerk Comment on above: Performed By: #### F T3, TSH, FT4, HEP #### [facility] [address], [place] [id number] US Thyroidon 08-07-2021 US Thyroid FINDINGS: Correlation made with prior examinations April 15, 2021, October 10, 2020. Right Lobe:4.5 x 2.2 x 2.0 cm Left Lobe:3.9 x 1.7 x 2.0 cm Isthmus (Thickness)8 mm (see below) Minimal change in thyroid volume with diffuse heterogeneous echotexture, overall similar lobular contours and no new nodule or mass. Largest TR4 nodule remains right of midline within the isthmus, currently measuring 2.2 x 2.2 x 1.4 cm (prior measurement October 10, 2020 2.5 x 2.3 x 1.3 cm), similar morphology and orientation. IMPRESSION: Stable thyroid appearance general heterogeneous echotexture and stable TR4 nodule, right of midline, isthmus. RECOMMENDATIONS:CANCE R RISK (ACR TI-RADS 2018) TR1: No FNA requiredTR1: 0.3% TR2: No FNA requiredTR2: 1.5% TR3: > 1.5 cm follow up, > 2.5 cm FNATR3: 4.8% Follow up: 1, 3 and 5 years TR4: > 1.0 cm follow up, > 1.5 cm FNATR4: 9.1% Follow up: 1, 2, 3 and 5 years TR5: > 0.5 cm follow up, > 1.0 cm FNATR5: 35% Annual follow up for up to 5 years Biopsy is recommended for suspicious lesions (TR3-TR5) with the above size criteria. If there are multiple nodules, the two with the highest ACR TI-RADS grades should be sampled (rather than the two largest). Interval enlargement on follow up is felt to be significant if there is an increase of 20% and 2 mm in two dimensions, or a 50% increase in volume. If the ACR TI-RADS level increased between scans, an interval scan the following year is again recommended. Report reported and signed by Koby Garcia on 08/08/2021 0708 Normal [facility] Traffic Clerk CBC AUTO DIFFon 04-27-2021 BASO # 0.0 103/ul Normal 0.0-0.1 [facility] Comment on above: Performed By: #### C BC #### [facility] [address] [place] [address] Dr. Melvin Valladares Basophils/100 WBC (Bld) 0.3 % Normal 0.2-2.0 [facility] Comment on above: Performed By: #### C BC #### [facility] [address] [place] [address] Dr. Melvin Valladares EO # 0.1 103/ul Normal 0.0-0.7 [facility] Comment on above: Performed By: #### C BC #### [facility] [address] [place] [address] Dr. Melvin Valladares Eosinophils/100 WBC (Bld) 0.9 % Normal 0.9-7.0 [facility] Comment on above: Performed By: #### C BC #### [facility] [address] [place] [address] Dr. Melvin Valladares Erythrocyte distribution width (RBC) [Ratio] 12.9 % Normal 11.0-15.0 [facility] Comment on above: Performed By: #### C BC #### [facility] [address] [place] [address] Dr. Melvin Valladares Hematocrit (Bld) [Volume fraction] 43.6 % Normal 36.0-48.0 [facility] Comment on above: Performed By: #### C BC #### [facility] [address] [place] [address] Dr. Melvin Valladares Hemoglobin (Bld) [Mass/Vol] 14.5 g/dL Normal 12.0-16.0 [facility] Comment on above: Performed By: #### C BC #### [facility] [address] [place] [address] Dr. Melvin Valladares IG # 0.02 10e3/ul Normal 0.00-0.03 [facility] Comment on above: Performed By: #### C BC #### [facility] [address] [place] [address] Dr. Melvin Valladares IG % 0.3 % Normal 0.0-0.5 [facility] Comment on above: Performed By: #### C BC #### [facility] [address] [place] [address] Dr. Melvin Valladares LYMPH # 1.2 103/ul Normal 1.2-3.8 [facility] Comment on above: Performed By: #### C BC #### [facility] [address] [place] [address] Dr. Melvin Valladares Lymphocytes/100 WBC (Bld) 16.5 % Critically low 20.5-60.0 [facility] Comment on above: Performed By: #### C BC #### [facility] [address] [place] [address] Dr. Melvin Valladares MANUAL DIFF REQ NO Normal [facility] Comment on above: Performed By: #### C BC #### [facility] [address] [place] [address] Dr. Melvin Valladares MCH (RBC) [Entitic mass] 29.7 pg Normal 26.7-34.0 [facility] Comment on above: Performed By: #### C BC #### [facility] [address] [place] [address] Dr. Melvin Valladares MCHC (RBC) [Mass/Vol] 33.3 g/dL Normal 29.9-35.2 [facility] Comment on above: Performed By: #### C BC #### [facility] [address] [place] [address] Dr. Melvin Valladares MCV (RBC) [Entitic vol] 89.3 fL Normal 81.0-99.0 [facility] Comment on above: Performed By: #### C BC #### [facility] [address] [place] [address] Dr. Melvin Valladares MONO # 0.7 103/ul Normal 0.3-0.8 [facility] Comment on above: Performed By: #### C BC #### [facility] [address] [place] [address] Dr. Melvin Valladares Monocytes/100 WBC (Bld) 9.2 % Normal 1.7-12.0 [facility] Comment on above: Performed By: #### C BC #### [facility] Laboratory [address] [place] [address] Dr. Melvin Valladares NEUT # 5.4 103/ul Normal 1.4-6.5 [facility] Comment on above: Performed By: #### C BC #### [facility] [address] [address] [address] Melvin Valladares Neutrophils/100 WBC (Bld) 72.8 % Normal 43.0-75.0 [facility] Comment on above: Performed By: #### C BC #### [facility] [address] [address] [address] Melvin Valladares Platelet mean volume (Bld) [Entitic vol] 10.4 fL Normal 9.5-13.5 [facility] Comment on above: Performed By: #### C BC #### [facility] [address] [address] [address] Melvin Valladares PLT 176 103/ul Normal 150-450 [facility] Comment on above: Performed By: #### C BC #### [facility] [address] [place] [address] Dr. Melvin Valladares RBC 4.88 106/ul Normal 4.20-5.40 [facility] Comment on above: Performed By: #### C BC #### [facility] [id number] Melvin Valladares WBC 7.4 103/ul Normal 4.0-11.0 [facility] Comment on above: Performed By: #### C BC #### [facility] [address] [place] [address] ABD/PELV W CONon 04-27-[address] ABD/PELV W CON EXAM: CT ABD/PELV W CON 04/27/2021 1:59 AM EDT OH001 CLINICAL STATEMENT: GENERALIZED ABDOMINAL PAIN COMPARISON: No prior studies are available at the time of dictation. TECHNIQUE: Helically acquired images were obtained of the abdomen and pelvis following 100 cc of Omnipaque 300 IV contrast. No oral contrast was administered. AEC is utilized. 2-D reconstructed images are provided. FINDINGS: There is a 5 mm right distal ureteric calculus with moderate severe right-sided hydronephrosis and hydroureter. Cholelithiasis may consider gallbladder ultrasound. The remaining upper abdominal solid organs are unremarkable. There is no bowel obstruction or free air. There is no ascites. There is no evidence of aortic aneurysm or dissection. Atherosclerotic aortoiliac calcifications. The celiac artery, superior mesenteric artery, and superior mesenteric vein are grossly patent. There is no retroperitoneal adenopathy. There is no appendicitis or diverticulitis. There are no pelvic masses or loculated fluid collections. The lung bases are clear. Degenerative changes of the lumbosacral spine. There are no destructive bone lesions identified. IMPRESSION: 5 mm right distal ureteric calculus with moderate severe right-sided hydronephrosis and hydroureter. Cholelithiasis may consider gallbladder ultrasound. Atherosclerotic aortoiliac calcifications. Degenerative changes of the lumbosacral spine. FOLLOW-UP: Follow-up as clinically indicated. Electronically authenticated by: PAULINO RAMIREZ Date: 2021-04-27 03:56 Normal [facility] ER URINE PROFILEon 1 Bilirubin Ql (U) Negative Normal NEGATIVE [facility] Comment on above: Performed By: #### U MICRO, ERUR #### [facility] [address] [place] [address] Dr. Melvin Valladares Clarity (U) CLEAR Normal CLEAR [facility] Comment on above: Performed By: #### U MICRO, ERUR #### [facility] [address] [place] [address] Dr. Melvin Valladares Color (U) LT. YELLOW Normal YELLOW [facility] Comment on above: Performed By: #### U MICRO, ERUR #### [facility] [address] [place] [address] Dr. Melvin CALVILLOD A micrscopic examination will be performed if indicated. Normal [facility] Comment on above: Performed By: #### U MICRO, ERUR #### [facility] [address] [address] [address] Melvin Valladares Glucose Ql (U) Negative Normal NEGATIVE [facility] Comment on above: Performed By: #### U MICRO, ERUR #### [facility] [address] [place] [address] Dr. Melvin Valladares Hemoglobin Ql (U) LARGE Abnormal NEGATIVE [facility] Comment on above: Performed By: #### U MICRO, ERUR #### [facility] [address] [address] [address] Melvin Valladares Ketones Ql (U) 40 mg/dl Abnormal NEGATIVE [facility] Comment on above: Performed By: #### U MICRO, ERUR #### [facility] [address] [place] [address] Dr. Melvin Valladraes LEUKOCYTES Negative Normal NEGATIVE [facility] Comment on above: Performed By: #### U MICRO, ERUR #### [facility] [address] [address] [address] Melvin Valladares Nitrite Ql (U) Negative Normal NEGATIVE [facility] Comment on above: Performed By: #### U MICRO, ERUR #### [facility] [address] [place] [address] Dr. Melvin Valladares pH (U) 5.5 [pH] Normal 5-9 [facility] Comment on above: Performed By: #### U MICRO, ERUR #### [facility] [address] [place] [address] Dr. Melvin Valladares SPEC GRAVITY >=1.030 Abnormal 1.005-<=1.025 [facility] Comment on above: Performed By: #### U MICRO, ERUR #### [facility] [address] [place] [address] Dr. Melvin Valladares UA PROTEIN TRACE Normal NEGATIVE/ TRACE [facility] Comment on above: Performed By: #### U MICRO, ERUR #### [facility] [address] [place] [address] Dr. Melvin Valladares UR MICRO IND INDICATED Normal [facility] Comment on above: Performed By: #### U MICRO, ERUR #### [facility] [address] [place] [address] Dr. Melvin Valladares Urobilinogen Qn (U) 0.2 {Demian'U}/dL Normal 0.2 - 1. 0 [facility] Comment on above: Performed By: #### U MICRO, ERUR #### [facility] [address] [place] [address] Dr. Melvin Valladares PROF CHEM 8 (BAS METB)on Anion gap [Moles/Vol] 14.7 mmol/L Normal [facility] Comment on above: Performed By: #### B MP #### [facility] [address] [address] [address] Melvin Valladares Calcium [Mass/Vol] 9.7 mg/dL Normal 8.4-10.2 [facility] Comment on above: Performed By: #### B MP #### [facility] [address] [address] [address] Melvin Valladares Chloride [Moles/Vol] 106 mmol/L Normal 98-107 [facility] Comment on above: Performed By: #### B MP #### [facility] [address] [address] [address] Melvin Valladares CO2 [Moles/Vol] 24.3 mmol/L Normal 22.0-30.0 [facility] Comment on above: Performed By: #### B MP #### [facility] [address] [address] [address] Melvin Valladares Creatinine [Mass/Vol] 1.01 mg/dL Normal 0.52-1.04 [facility] Comment on above: Performed By: #### B MP #### [facility] [address] [address] [address] Melvin Valladares EGFR-AF IRANIAN >60 Normal >=60 [facility] Comment on above: Performed By: #### B MP #### [facility] [address] [address] [address] Melvin Valladares EGFR-NON AF IRANIAN 54 mL/min/1.73m2 Critically low >=60 [facility] Comment on above: Performed By: #### B MP #### [facility] [address] [address] [address] Melvin Valladares Glucose [Mass/Vol] 114 mg/dL Critically high 74-106 [facility] Comment on above: Performed By: #### B MP #### [facility] [address] [address] [address] Melvin Valladares Potassium [Moles/Vol] 2.9 mmol/L Critically low 3.4-5.0 [facility] Comment on above: Result Comment: test repeated critical value verified Performed By: #### B MP #### [facility] [address] [place] [address] Dr. Melvin Valladares Sodium [Moles/Vol] 141 mmol/L Normal 137-145 [facility] Comment on above: Performed By: #### B MP #### [facility] [address] [place] [address] Dr. Melvin Valladares Urea nitrogen [Mass/Vol] 17.0 mg/dL Normal 7.0-17.0 [facility] Comment on above: Performed By: #### B MP #### [facility] [address] [place] [address] Dr. Melvin Valladares Urea nitrogen/Creatinine [Mass ratio] 16.8 mg/mg Normal [facility] Comment on above: Performed By: #### B MP #### [facility] [address] [place] [address] Dr. Melvin Valladares URINE MICROSCOPIC ONLYon BACTERIA TRACE Abnormal NONE SEEN [facility] Comment on above: Performed By: #### U MICRO, ERUR #### [facility] [address] [place] [address] Dr. Melvin Valladares Bacteria identified Cx Nom (U) NOT INDICATED Normal [facility] Comment on above: Performed By: #### U MICRO, ERUR #### [facility] [address] [place] [address] Dr. Melvin Valladares CAST NONE SEEN Normal NONE SEEN [facility] Comment on above: Performed By: #### U MICRO, ERUR #### [facility] [address] [place] [address] Dr. Melvin Valladares Crystals LM Nom (Urine sed) NONE SEEN Normal NONE SEEN [facility] Comment on above: Performed By: #### U MICRO, ERUR #### [facility] [address] [place] [address] Dr. Melvin Valladares Epithelial cells LM Ql (Urine sed) FEW Abnormal NONE SEEN /RARE [facility] Comment on above: Performed By: #### U MICRO, ERUR #### [facility] [address] [place], [place] [address] Dr. Melvin Valladares MUCOUS NONE SEEN Normal NONE SEEN [facility] Comment on above: Performed By: #### U MICRO, ERUR #### [facility] [address] [place], [place] [address] Dr. Melvin Valladares RBC 2-5 Abnormal 0-2 [facility] Comment on above: Performed By: #### U MICRO, ERUR #### [facility] [id number] Melvin Valladares WBC 2-5 Abnormal NONE SEEN [facility] Comment on above: Performed By: #### U MICRO, ERUR #### [facility] [address] [address] [address] Melvin Valladares NM THY SCAN W [place] 12-01-19 21 NM THY SCAN W UPT EXAMINATION: NM THY SCAN W UPT HISTORY: Hyperthyroidism COMPARISON: No relevant comparison available. TECHNIQUE: After obtaining patient consent, 339.4 uCi of I-123 was administered orally. Uptake was evaluated between 4 and 6 hours and at 24 hours. Images were acquired at 4 - 6 hours. FINDINGS: THYROID SCAN: Right lobe appears slightly enlarged and demonstrates greater radiotracer uptake compared to the left. No appreciable cold nodule. 6 hour thyroid uptake: 31% (6-14% normal range) 24 hour thyroid uptake: 51% (10-30% normal range) IMPRESSION: 1. Slightly enlarged right thyroid lobe without appreciable focal nodule. 2. Abnormally elevated thyroid uptake at 6 and 24 hours suggestive of hyperthyroidism. Electronically authenticated by: CHARLY WALSH Date: 2020-11-30 08:05 Normal [facility] US THYROID FN ASP BXon 11-29 US THYROID FN ASP BX Begin Addendum #1 COLLECTED DATE/TIME: 11/26/2020, 13:10 EDT Final Diagnosis Report for [facility] [place] (A/B) RIGHT ISTHMUS THYROID NODULE, FINE NEEDLE ASPIRATION - BENIGN FOLLICULAR NODULE (C/D) RIGHT THYROID MID LOBE NODULE, FINE NEEDLE ASPIRATION - BENIGN FOLLICULAR NODULE Faxed to Dr. Pyle. Verified with Johana that report was present in the office. Original Report EXAMINATION: US THYROID FN ASP BX , 2 separate nodules HISTORY: Thyroid nodule COMPARISON: No relevant comparison available. TECHNIQUE: After obtaining informed consent, ultrasound-guided fine needle aspiration was performed in the usual sterile manner. FINDINGS: IMAGING: Ultrasound. BIOPSY NEEDLE: 25-gauge, 1.5 inch LOCATION: Isthmus nodule, right thyroid nodule SPECIMEN TYPE: 3 needle aspirates of the isthmus nodule, 3 fine-needle aspirates of the right thyroid nodule Cellular tissue. LOCAL ANESTHETIC: 1 mL Buffered Xylocaine at both locations. COMPLICATIONS: None. LABORATORY: Prepared slide smears and washings for cell block evaluation. OTHER: Negative. PATHOLOGY: Pending. An addendum will be added when results are available. IMPRESSION: 1. Uneventful ultrasound guided fine needle aspiration (FNA) 2 separate nodules 2. Pathology results are pending. Normal [facility] 07-17-2020 [facility] Telephone (GYN) MEENU HOLDER ([id number]) 1945 F Date Time Provider Department 07/17/20 LEONA GOMES During your visit today, we recorded the following information about you: Leona Gomes APRN.CNP 07/17/2020 11:25 AM Signed Call placed to patient to follow up from 07/11/[address] Palacio. Patient was hypertensive at that appt and was advised to go to the urgent care. Labs were obtained and potassium was noted to be mildly low at 3.5. Patient reports she went to urgent care and was prescribed BP medication. She also had a visit with a PCP and he added an additional medication. She is feeling better a this time with the addition of the medications. Reviewed result of potassium. She was able to list high potassium foods and is going to increase her daily intake. She has a follow with her PCP at the end of July. Advised to call the office with questions/concerns. 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] 06/04/2016 Malnutrition of moderate degree (HCC) [E44.0] 07/09/2016 Encounter Status:Closed by LEONA GOMES CNP on 07/17/20 Normal [facility] Vital Signs Date Time Vital Sign Value Performing Clinician Sridevi baer 02-01-2025 10:42-0400 Body mass index (BMI) [Ratio] 22.98 kg/m2 Tory Hand APRN.KAYLIE Work Phone: [facility] 02-01-2025 10:42-0400 Body temperature 97.59 [degF] Tory Hand SIGN PAINTER HELPER.LEARNING SUPPORT AIDE Work Phone: [facility] 02-01-2025 10:42-0400 Body weight 54.7 kg Tory Hand SIGN PAINTER HELPER.LEARNING SUPPORT AIDE Work Phone: [facility] 02-01-2025 10:42-0400 Diastolic blood pressure 75 mm[Hg] Tory Hand SIGN PAINTER HELPER.LEARNING SUPPORT AIDE Work Phone: [facility] 02-01-2025 10:42-0400 Heart rate 65 /min Tory Hand APRN.LEARNING SUPPORT AIDE Work Phone: [facility] 02-01-2025 10:42-0400 Respiratory rate 16 /min Tory Hand APRN.LEARNING SUPPORT AIDE Work Phone: [facility] 02-01-2025 10:42-0400 SaO2% (BldA) [Mass fraction] 96 % Tory Hand SIGN PAINTER HELPER.LEARNING SUPPORT AIDE Work Phone: [facility] 02-01-2025 10:42-0400 Systolic blood pressure 138 mm[Hg] Tory Hand SIGN PAINTER HELPER.LEARNING SUPPORT AIDE Work Phone: [facility] 12-14-2024 10:48-0400 Body height 157.5 cm Neil Vazquez MD Work Phone: [facility] 12-14-2024 10:48-0400 Body mass index (BMI) [Ratio] 22.86 kg/m2 Neil Vazquez MD Work Phone: [facility] 12-14-2024 10:48-0400 Body weight 56.7 kg Neil Vazquez MD Work Phone: [facility] 12-14-2024 10:48-0400 Diastolic blood pressure 82 mm[Hg] Neil Vazquez MD Work Phone: [facility] 12-14-2024 10:48-0400 Heart rate 72 /min Neil Vazquez MD Work Phone: [facility] 12-14-2024 10:48-0400 Respiratory rate 16 /min Neil Vazquez MD Work Phone: [facility] 12-14-2024 10:48-0400 SaO2% (BldA) [Mass fraction] 96 % Neil Vazquez MD Work Phone: [facility] 12-14-2024 10:48-0400 Systolic blood pressure 138 mm[Hg] Neil Vazquez MD Work Phone: [facility] 09-21-2024 14:06-0500 Body height 157.5 cm Abel Pyle MD Work Phone: [facility] 09-21-2024 14:06-0500 Body mass index (BMI) [Ratio] 22.31 kg/m2 Abel Pyle MD Work Phone: [facility] 09-21-2024 14:06-0500 Body weight 55.34 kg Abel Pyle MD Work Phone: [facility] 09-21-2024 14:06-0500 Diastolic blood pressure 80 mm[Hg] Abel Pyle MD Work Phone: [facility] 09-21-2024 14:06-0500 Heart rate 81 /min Abel Pyle MD Work Phone: [facility] 09-21-2024 14:06-0500 Systolic blood pressure 136 mm[Hg] Abel Pyle MD Work Phone: [facility] 06-15-2024 11:07-0500 Body height 157.5 cm Neil Vazquez MD Work Phone: [facility] 06-15-2024 11:07-0500 Body mass index (BMI) [Ratio] 22.68 kg/m2 Neil Vazquez MD Work Phone: [facility] 06-15-2024 11:07-0500 Body weight 56.25 kg Neil Vazquez MD Work Phone: [facility] 06-15-2024 11:07-0500 Diastolic blood pressure 84 mm[Hg] Neil Vazquez MD Work Phone: [facility] 06-15-2024 11:07-0500 Heart rate 59 /min Neil Vazquez MD Work Phone: [facility] 06-15-2024 11:07-0500 Respiratory rate 16 /min Neil Vazquez MD Work Phone: [facility] 06-15-2024 11:07-0500 Systolic blood pressure 124 mm[Hg] Neil Vazquez MD Work Phone: [facility] 09-16-2023 14:14-0500 Body height 160 cm Abel Pyle MD Work Phone: [facility] 09-16-2023 14:14-0500 Body mass index (BMI) [Ratio] 20.9 kg/m2 Abel Pyle MD Work Phone: [facility] 09-16-2023 14:14-0500 Body weight 53.52 kg Abel Pyle MD Work Phone: [facility] 09-16-2023 14:14-0500 Diastolic blood pressure 73 mm[Hg] Abel Pyle MD Work Phone: [facility] 09-16-2023 14:14-0500 Systolic blood pressure 124 mm[Hg] Abel Pyle MD Work Phone: [facility] Encounters Encounter Date Encounter Type Care Provider Facility Start: 02-09-2025 End: 02-09-2025 Orders Only [facility] SIGN PAINTER HELPER.LEARNING SUPPORT AIDE Work Phone: [facility] Start: 02-01-2025 End: 02-01-2025 Patient encounter procedure [facility] SIGN PAINTER HELPER.LEARNING SUPPORT AIDE Work Phone: [facility] Start: 02-01-2025 End: 02-01-2025 ambulatory [facility] SIGN PAINTER HELPER.LEARNING SUPPORT AIDE Work Phone: [facility] Comment on above: History of cervical cancer (Primary Dx); Vaginal bleeding; Vaginal adhesions; Radiation proctitis; Other urinary incontinence; Hemorrhoids, unspecified hemorrhoid type; Screening due Start: 12-28-2024 End: 12-28-2024 Telephone encounter [facility]ma 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) Start: 12-14-2024 End: 12-14-2024 ambulatory NEIL VAZQUEZ Not Available Start: 09-21-2024 End: 09-21-2024 Office outpatient visit 15 minutes Abel Pyle MD Work Phone: [facility] Comment on above: Multinodular goiter (CMS/HCC) (Primary Dx) Start: 09-21-2024 End: 09-21-2024 Bamboo flowsheet Abel Pyle MD Work Phone: [facility] Start: 09-21-2024 End: 09-21-2024 Bamboo flowsheet Abel Pyle MD Work Phone: [facility] Start: 09-21-2024 End: 09-21-2024 ambulatory ABEL PYLE Not Available Start: 09-19-2024 End: 09-19-2024 ambulatory [facility] Start: 06-15-2024 End: 06-15-2024 Bamboo flowsheet Neil Vazquez MD Work Phone: [facility] Start: 06-15-2024 End: 06-15-2024 Bamboo flowsheet Neil Vazquez MD Work Phone: [facility] Start: 06-15-2024 End: 06-15-2024 Office outpatient visit 25 minutes Neil Vazquez MD Work Phone: [facility] Comment on above: Hyperthyroidism (CMS /HCC) (Primary Dx); Multinodular goiter (CMS/HCC); 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) Start: 06-15-2024 End: 06-15-2024 ambulatory NEIL VAZQUEZ Not Available Start: 01-27-2024 End: 01-27-2024 ambulatory ABEL PYLE Not Available Start: 01-11-2024 End: 01-11-2024 ambulatory [facility] Start: 09-16-2023 End: 09-16-2023 Office outpatient visit 15 minutes Abel Pyle MD Work Phone: [facility] Comment on above: Multinodular goiter (CMS/HCC) (Primary Dx) Start: 09-16-2023 Bamboo flowsheet Abel felix MD Work Phone: [facility] Start: 09-16-2023 Bamboo flowsheet Abel felix MD Work Phone: [facility] Start: 09-12-2023 Chart abstracting Abel bethea MD Work Phone: [facility] Start: 08-20-2023 End: 08-20-2023 ambulatory Abel Pyle Jr Facility:[facility] Start: 08-20-2023 End: 08-20-2023 ambulatory MD Abel Pyle Jr [facility] Work Phone: Start: 08-20-2023 End: 08-20-2023 Departed Referred MD Abel Pyle Jr [facility] Start: 10-10-2021 End: 10-11-[address] CHARLY WALSH Facility:[facility] Start: 04-27-2021 End: 04-27-[address] DREW NUNO Facility:[facility] Start: 11-29-2020 End: 11-30-[address] ABEL PYLE Facility:[facility] Start: 11-26-2020 End: 11-26-[address] ABEL PYLE Facility:[facility] Plan of Treatment Date Care Activity Detail Author Start: 01-31-2026 End: 01-31-2026 Follow-up encounter 01/31/2026 10:30 AM EDT Visit (SP) Office [facility]cology Oncology [address] [place] [address] [place] [address] Tory Hand APRN.LEARNING SUPPORT AIDE [address] [place] [address] 1 year follow up [facility] Comment on above: 1 year follow up Tory Start: 10-18-2025 End: 10-18-2025 Patient encounter procedure 10/18/2025 2:30 PM EDT Office Visit [facility] [address] [place] [address] Abel Pyle MD [address] [facility] [address] [place] [address] [facility] Start: 04-03-2025 Influenza vaccination [facility] Start: 01-25-2025 End: 01-25-2025 ambulatory 01/25/2025 1:00 PM EDT Visit (SP) Office Gynecology Oncology [address] [place] [address] [place] [address] Tory Hand APRN.LEARNING SUPPORT AIDE [address] [place], [place] [id number] Past history of cervix cancer [facility] Comment on above: Past history of cervix cancer Start: 12-23-2024 End: 12-23-2024 Patient encounter procedure 12/23/2024 9:30 AM EDT Office Visit [facility] [address] [facility] [address] [place] [address] Drew Nuno MD [address] [facility] [address] [place] [address] [facility] Start: 12-22-2024 Medicare Annual Wellness (AWV) Medicare Annual Wellness (AWV) [facility] Start: 12-14-2024 End: 12-14-2025 Thyrotropin [Units/volume] in Serum or Plasma TSH Lab Routine Hyperthyroidism ([facility]/HCC) Expected: 12/14/2024 (Approximate), Expires: 12/14/2025 [facility] Comment on above: Expected: 12/14/2024 (Approximate), Expi res: 12/14/2025 Start: 12-14-2024 End: 12-14-2025 Thyroxine (T4) free [Mass/volume] in Serum or Plasma T4, free Lab Routine Hyperthyroidism ([facility]/HCC) Expected: 12/14/2024 (Approximate), Expires: 12/14/2025 [facility] Comment on above: Expected: 12/14/2024 (Approximate), Expi res: 12/14/2025 Start: 12-14-2024 End: 12-14-2025 Triiodothyronine (T3) Free [Mass/volume] in Serum or Plasma T3, free Lab Routine Hyperthyroidism (CMS/HCC) Expected: 12/14/2024 (Approximate), Expires: 12/14/2025 [facility] Work Phone: Comment on above: Expected: 12/14/2024 (Approximate), Expi res: 12/14/2025 Start: 12-14-2024 End: 12-14-2024 Patient encounter procedure [facility] Comment on above: Arrived Start: 09-21-2024 End: 09-21-2024 Patient encounter procedure 09/21/2024 2:20 PM EST Office Visit [facility] [address] [place] [address] Abel Pyle MD [address] [place] [address] Arrived [facility] Comment on above: Arrived Start: 08-31-2024 End: 08-31-2024 Patient encounter procedure 08/31/2024 11:10 AM EST Office Visit [facility] [address] [place] [address] Abel Pyle MD [address] [place] [address] [facility] Start: 08-03-2024 Advance Directive Discussion Advance Directive Discussion [facility] Start: 06-15-2024 End: 06-15-2025 Hepatic function 2000 panel - Serum or Plasma Hepatic function panel Lab Routine Hyperthyroidism (CMS/HCC) Expected: 06/15/2024 (Approximate), Expires: 06/15/2025 [facility] Comment on above: Expected: 06/15/2024 (Approximate), Expi res: 06/15/2025 Start: 06-15-2024 End: 06-15-2025 Thyrotropin [Units/volume] in Serum or Plasma TSH Lab Routine Hyperthyroidism (CMS/HCC) Expected: 06/15/2024 (Approximate), Expires: 06/15/2025 [facility] Comment on above: Expected: 06/15/2024 (Approximate), Expi res: 06/15/2025 Start: 06-15-2024 End: 06-15-2025 Thyroxine (T4) free [Mass/volume] in Serum or Plasma T4, free Lab Routine Hyperthyroidism (CMS/HCC) Expected: 06/15/2024 (Approximate), Expires: 06/15/2025 [facility] Comment on above: Expected: 06/15/2024 (Approximate), Expi res: 06/15/2025 Start: 06-15-2024 End: 06-15-2025 Triiodothyronine (T3) Free [Mass/volume] in Serum or Plasma T3, free Lab Routine Hyperthyroidism (CMS/HCC) Expected: 06/15/2024 (Approximate), Expires: 06/15/2025 [facility] Work Phone: Comment on above: Expected: 06/15/2024 (Approximate), Expi res: 06/15/2025 Start: 04-03-2024 Covid-19 Vaccine ( season) Covid-19 Vaccine ( season) [facility] Start: 04-03-2024 Covid-19 Vaccine ( season) Covid-19 Vaccine ( season) [facility] Start: 04-03-2024 Influenza vaccination Influenza Vaccine (#1) [facility] Start: 10-08-2023 Medicare Annual Wellness (AWV) Medicare Annual Wellness (AWV) [facility] Start: 09-16-2023 End: 09-16-2023 Patient encounter procedure [facility] Comment on above: Arrived Start: 07-11-2023 Diabetes Screening Diabetes Screening [facility] Start: 04-03-2023 Influenza vaccination Influenza Vaccine (#1) [facility] Start: 2022 RSV Vaccine (1 - 1-dose 75+ series) RSV Vaccine (1 - 1-dose 75+ series) [facility] Start: 2012 Pneumococcal Vaccine: 65+ Years (1 - PCV) Pneumococcal Vaccine: 65+ Years (1 - PCV) [facility] Start: 2012 Pneumococcal Vaccine: 65+ Years (1 of 1 - PCV) Pneumococcal Vaccine: 65+ Years (1 of 1 - PCV) [facility] Start: 2012 Screening for osteoporosis Bone Density Screening [facility] Start: 06-03-2012 Medicare Annual Wellness Visit Medicare Annual Wellness Visit [facility] Start: 1997 Pneumococcal Vaccine: 50+ (1 of 1 - PCV) Pneumococcal Vaccine: 50+ (1 of 1 - PCV) [facility] Start: 1997 Pneumococcal Vaccine: 65+ Years (1 of 1 - PCV) Pneumococcal Vaccine: 65+ Years (1 of 1 - PCV) [facility] Start: 1997 Shingrix Vaccine (1 of 2) Shingrix Vaccine (1 of 2) [facility] Start: 1966 Urine microalbumin profile DTaP,Tdap,Td Vaccine (1 - Tdap) [facility] Start: 1965 Anxiety Screening Anxiety Screening [facility] Start: 1965 Depression Screening Depression Screening [facility] Start: 1965 Hepatitis C screening Hepatitis C Screening [facility] End: 03-03-2026 MR Pelvis WO and W contrast IV MRI FEMALE PELVIS WO/W IVCON Radiology Routine History of cervical cancer Vaginal bleeding Vaginal adhesions 1 Occurrences starting 02/01/2025 until 03/03/2026 [facility] Work Phone: Comment on above: 1 Occurrences starting 02/01/2025 until 03/03/2026 PAP TEST PAP TEST Lab Uzair rosado History of cervical cancer 02/01/2025 12:59 PM EDT [facility] Immunizations Immunization Date Immunization Notes Care Provider Fa [facility] 05-21-2022 Influenza, High-dose Seasonal, Quadrivalent, Preservative Free Abel Pyle MD Work Phone: [facility] 05-21-2022 influenza virus vacc ine, unspecified formulation Abel Pyle MD Work Phone: [facility] 06-19-2020 influenza, high dose seasonal, preservative-free Abel Pyle MD Work Phone: [facility] 06-13-2019 influenza, high dose seasonal, preservative-free Abel Pyle MD Work Phone: [facility] 06-17-2017 influenza, high dose seasonal, preservative-free Able Pyle MD Work Phone: [facility] Payers Date Payer Category Payer Self-pay 2023 Unknown AARP AARP [id number] 2023-Present [address] [place] [address] [id number] 2015 Private Health Insurance [id number] 2012 Medicare [id number] 1959 Medicare [id number] 1959 Unknown [id number] 1947 Unknown [id number] 93 1947 Unknown [id number] 93 1947 Unknown [id number] 93 1947 Unknown [id number] 93 1947 Unknown [id number] 286 1947 Unknown [id number] 286 1947 Unknown [id number] 259 1947 Unknown [id number] 259 1947 Unknown [id number] 259 1947 Unknown [id number] 259 1947 Unknown [id number] 259 Social History Date Type Detail Facility Tobacco smoking stat us NHIS Unknown if ever smoked [facility] Work Phone: Start: 1945 Sex Assigned At Female F [facility] Start: 05-19-2016 End: 08-12-2023 Tobacco smoking status NHIS Never smoked tobacco [facility] Start: 05-19-2016 End: 08-12-2023 Tobacco use and exposure Smokeless tobacco non-user [facility] Start: 08-12-2023 End: 09-21-2024 Alcohol intake Lifetime non-drinker (finding) [facility] Start: 08-12-2023 End: 01-25-2025 History of Social function [facility] Start: 08-12-2023 End: 01-25-2025 Tobacco use panel [facility] Start: 1945 Sex Assigned At Not on file [facility] Start: 07-11-2020 End: 02-01-2025 Alcoholic beverage intake Current non-drinker of alcohol (finding) [facility] National Score (1-100), lower number is lower risk Not on file [facility] Clinical Notes 09-16-2023 to 02-09-2025 Telephone Encounter - Tory Hand APRN.CNP - 02/09/2025 11:18 AM EDTTelephone Encounter - Tory Hand APRN.CNP - 02/09/2025 11:18 AM EDTSTory bryan APRN.CNP - 02/01/2025 11:00 AM EDT Note Date & Type Note Facility 02-09-2025 Telephone encounter Note Called patient to advise of negative pap results and + bacteria. Patient denies symptoms of odor or discharge. Advise to call if symptoms occur. No need to treat. Tory Hand APRN.CNP [facility] 02-09-2025 Miscellaneous Notes Called patient to advise of negative pap results and + bacteria. Patient denies symptoms of odor or discharge. Advise to call if symptoms occur. No need to treat. Tory Hand APRN.KAYLIE documented in this encounter [facility] 02-01-2025 History of Presen t illness Narrative Images from the original note were not included. DATE OF SERVICE: 02/01/2025 PROBLEM: Meenu Holder is a consult from Dr. Nuno for evaluation of history of cervical cancer. HPI: Ms. Holder is a 79 year old female who has a past medical history of Cervix cancer (HCC) (2016), HTN (hypertension), Hyperthyroidism, Multinodular goiter, PAC (premature atrial contraction), and Post-menopausal. HISTORY OF ILLNESS- 05/21/2016-[facility] cervical biopsies Dr. Rodriguez FINAL DIAGNOSIS 1. Endometrium, curettage (A) - Fragments of invasive moderately differentiated non-keratinizing squamous cell carcinoma. 2. Endocervix, curettage (B) - Fragments of moderately differentiated non-keratinizing squamous cell carcinoma. 1) Primary radiation with weekly cisplatin s/p 6 weeks s/p EBRT 54 Gy in 30 fx from 06/17/16 - 07/29/16, followed by 30 Gy in 5 fx from 07/30/2016 to 08/15/2016 Patient is a 79-year-old female with a history of stage IIB cervical cancer, who underwent primary chemoradiation therapy in 2016. She has been LENI since her last Pap test in 2019. She was referred back to our service by her PCP for continued follow-up after a routine exam. She reports no chest pain, shortness of breath, new abdominal pain, or vaginal bleeding. She does experience occasional diarrhea, which she manages with Imodium before meals, particularly when consuming certain foods. She also reports urinary frequency and nocturnal leakage, for which she wears a pad at night. She has not had a colonoscopy and has declined previous recommendations for one. IMAGING: CT CHEST: No results found. CT ABD/PELVIS: No results found. PET/CT 11/13/2016 IMPRESSION: 1. Significant positive response to interval therapy with decrease in size of cervical mass which now demonstrates no residual FDG hypermetabolism. 2. No evidence of FDG avid lymphadenopathy or distal metastatic disease. 3. New FDG uptake within the right upper sacrum corresponding to insufficiency fracture on recent MRI. 4. Slightly asymmetric FDG uptake within the tonsils avidity is exam, right greater than left, with overall decreased intensity compared to the prior study. This is is likely reactive/inflammatory in nature. Clinical correlation recommended. 5. Additional findings on low-dose CT as above. LABS: No data to display PATHOLOGY: No results found for: FINALDIAGNOS HISTORIES: PAST GYNECOLOGIC HISTORY: OB History Gravida3 Para3 Term0 Preterm0 AB0 Living3 SAB0 IAB0 Ectopic0 Multiple0 Live Births0 LMP: No LMP recorded. Patient is postmenopausal. Hormonal contraceptives: N/A . HRT use: N/A . History of abnormal pap: Yes, see above Last pap/HPV: 07/18/2020 PAST SURGICAL HISTORY Procedure Laterality Date PAST SURGICAL HISTORY OF oral surgery PAST MEDICAL HISTORY Diagnosis Date Cervix cancer (HCC) 2016 HTN (hypertension) Hyperthyroidism Multinodular goiter PAC (premature atrial contraction) Post-menopausal FAMILY HISTORY Problem Relation Age of Onset other (Dementia) Mother Heart Father PA, Hypertension Sister Cancer Brother Lung cancer & Heart disease, Cancer Paternal Grandfather Cancer Grandchild Family history of breast, ovarian, uterine or colon cancer: No Family history of VTE: No SOCIAL HISTORY Social History Tobacco Use Smoking status: Never Smokeless tobacco: Never Substance Use Topics Alcohol use: No Drug use: No Occupation: retired Marital Status: Single HEALTH MAINTENANCE: Last mammogram: 10/10/2021-negative Last colonoscopy: never? SUBJECTIVE/ROS: 02/01/25-Patient states she feels good overall. Patient reports no bowel or bladder issues. No bleeding, discharge, or pain. No shortness of breath, cough, or chest pain. Cardiovascular: (-) chest pain Respiratory: (-) shortness of breath Gastrointestinal: (+) diarrhea, (-) abdominal pain Genitourinary: (+) urinary frequency, (+) nocturnal urinary incontinence, (-) vaginal bleeding OBJECTIVE: VITALS: BP 138/75 Pulse 65 Temp 36.4 C (97.6 F) (Temporal) Resp 16 Wt 54.7 kg (120 lb 9.5 oz) SpO2 96% BMI 22.98 kg/m GENERAL: Patient is a well developed, well nourished female. She is alert, oriented, pleasant, and cooperative. SKIN: Color, texture, turgor normal. No rashes or lesions. HEENT: Normocephalic, atraumatic, mucus membranes moist, and no lesions NECK: Supple, no adenopathy; thyroid symmetric, normal size, no bruits, Not examined LUNGS: Clear to auscultation bilaterally. HEART: Regular rate and rhythm, no murmurs. ABDOMEN: Abdomen soft, non-tender, no hepatosplenomegaly. PELVIC: No lesions noted to vulva. Vaginal canal shortened, significant scarring noted, unable to visualize cervix, pap obtained from foreshortened vagina, mild bleeding with pap test spatula. Unable to assess cervix. External hemorrhoids present/no bleeding. LOWER EXTREMITIES: No pitting edema, no palpable cords, and no skin changes. Pneumatic Tube Fitter for exam: Declined The sensitive examination was discussed with the Patient or Patient's Authorized Merchandising Representative. As applicable, any other physician, advance practice provider, medical student, or other health professional student that will be observing or involved in the sensitive examination for educational or training purposes was discussed with the Patient or Authorized Merchandising Representative. The Patient or Authorized Merchandising Representative has agreed to proceed with the sensitive examination. PROCEDURES: pap ASSESSMENT/PLAN: 1. History of cervical cancer (Z85.41) Patient has been LENI since primary chemo RT in 2017. Last Pap test was in 2019. Examination revealed significant vaginal scarring, preventing adequate visualization of the cervix. - Performed a limited scraping to test for HPV. - Ordered pelvic MRI to evaluate for any residual or recurrent disease. - Scheduled follow-up tele-visit to discuss MRI results. 2. Vaginal bleeding (N93.9) Minimal bleeding noted during attempted Pap test, likely due to scarring. 3. Vaginal adhesions (N89.5) Significant scarring observed, likely secondary to radiation therapy. 4. 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 - Advised continued use of Imodium as needed, up to 4 tablets per day. - Recommended dietary modifications to avoid trigger foods. 5. Other urinary incontinence (N39.498) Experiencing nocturnal urinary leakage, possibly due to decreased urethral tone or mild pelvic organ prolapse. - Advised reducing fluid intake in the evening. - Discussed potential referral to a urogynecologist if symptoms worsen. 6. Hemorrhoids, unspecified hemorrhoid type (K64.9) External hemorrhoids noted on examination, likely contributing to occasional rectal bleeding. 7. Screening due (Z13.9) Patient is due for routine cervical cancer screening. - Attempted Pap test; limited by scarring. - Ordered pelvic MRI as an alternative screening method. - Declines mammogram - Declines colonoscopy, will discuss Insurance: Payor: MEDICARE / Plan: MEDICARE A AND B / Product Type: Medicare / Medicaid consent signed (if applicable): N/A Tory Hand APRN.LEARNING SUPPORT AIDE Recording using Intelligent Apps (mytaxi) software for draft documentation of the visit was discussed with the patient/authorized guest services representative; all questions welcomed and answered. Patient/authorized guest services representative agreed to proceed A letter and a copy of this office note were sent to: - Drew Nuno II, MD [address] [facility] [address] [facility] [address] - No primary care provider on file. (PCP) Medical Decision Making: Problems: Low: Stable chronic illness Moderate: New problem with uncertain prognosis Data: Unique test result(s) reviewed: 1 Unique test(s) ordered: 2 Medical Decision Making Level: 4 - Moderate documented in this encounter [facility] 02-01-2025 Note HNO ID: [id number] Author: TORY HAND APRN.LEARNING SUPPORT AIDE Service: ? Author Type: Nurse Practitioner Type: Progress Notes Filed: 02/01/2025 11:51 Note Text: DATE OF SERVICE: 02/01/2025 PROBLEM: Meenu Holder is a consult from Dr. Nuno for evaluation of history of cervical cancer. HPI: Ms. Holder is a 79 year old female who has a past medical history of Cervix cancer (HCC) (2017), HTN (hypertension), Hyperthyroidism, Multinodular goiter, PAC (premature atrial contraction), and Post-menopausal. HISTORY OF ILLNESS- 05/21/2016-[facility] cervical biopsies Dr. Rodriguez FINAL DIAGNOSIS 1. Endometrium, curettage (A) - Fragments of invasive moderately differentiated non-keratinizing squamous cell carcinoma. 2. Endocervix, curettage (B) - Fragments of moderately differentiated non-keratinizing squamous cell carcinoma. 1) Primary radiation with weekly cisplatin s/p 6 weeks s/p EBRT 54 Gy in 30 fx from 06/17/16 - 07/29/16, followed by 30 Gy in 5 fx from 07/30/2016 to 08/15/2016 Patient is a 79-year-old female with a history of stage IIB cervical cancer, who underwent primary chemoradiation therapy in 2017. She has been LENI since her last Pap test in 2019. She was referred back to our service by her PCP for continued follow-up after a routine exam. She reports no chest pain, shortness of breath, new abdominal pain, or vaginal bleeding. She does experience occasional diarrhea, which she manages with Imodium before meals, particularly when consuming certain foods. She also reports urinary frequency and nocturnal leakage, for which she wears a pad at night. She has not had a colonoscopy and has declined previous recommendations for one. IMAGING: CT CHEST: No results found. CT ABD/PELVIS: No results found. PET/CT 11/13/2016 IMPRESSION: 1. Significant positive response to interval therapy with decrease in size of cervical mass which now demonstrates no residual FDG hypermetabolism. 2. No evidence of FDG avid lymphadenopathy or distal metastatic disease. 3. New FDG uptake within the right upper sacrum corresponding to insufficiency fracture on recent MRI. 4. Slightly asymmetric FDG uptake within the tonsils avidity is exam, right greater than left, with overall decreased intensity compared to the prior study. This is is likely reactive/inflammatory in nature. Clinical correlation recommended. 5. Additional findings on low-dose CT as above. LABS: No data to display PATHOLOGY: No results found for: FINALDIAGNOS HISTORIES: PAST GYNECOLOGIC HISTORY: OB History Gravida3 Para3 Term0 Preterm0 AB0 Living3 SAB0 IAB0 Ectopic0 Multiple0 Live Births0 LMP: No LMP recorded. Patient is postmenopausal. Hormonal contraceptives: N/A . HRT use: N/A . History of abnormal pap: Yes, see above Last pap/HPV: 07/18/2020 PAST SURGICAL HISTORY Procedure Laterality Date PAST SURGICAL HISTORY OF oral surgery PAST MEDICAL HISTORY Diagnosis Date Cervix cancer (HCC) 2016 HTN (hypertension) Hyperthyroidism Multinodular goiter PAC (premature atrial contraction) Post-menopausal FAMILY HISTORY Problem Relation Age of Onset other (Dementia) Mother Heart Father PA, Hypertension Sister Cancer Brother Lung cancer AND Heart disease, Cancer Paternal Grandfather Cancer Grandchild Family history of breast, ovarian, uterine or colon cancer: No Family history of VTE: No SOCIAL HISTORY Social History Tobacco Use Smoking status: Never Smokeless tobacco: Never Substance Use Topics Alcohol use: No Drug use: No Occupation: retired Marital Status: Single HEALTH MAINTENANCE: Last mammogram: 10/10/2021-negative Last colonoscopy: never? SUBJECTIVE/ROS: 02/01/25-Patient states she feels good overall. Patient reports no bowel or bladder issues. No bleeding, discharge, or pain. No shortness of breath, cough, or chest pain. Cardiovascular: (-) chest pain Respiratory: (-) shortness of breath Gastrointestinal: (+) diarrhea, (-) abdominal pain Genitourinary: (+) urinary frequency, (+) nocturnal urinary incontinence, (-) vaginal bleeding OBJECTIVE: VITALS: BP 138/75 Pulse 65 Temp 36.4 ?C (97.6 ?F) (Temporal) Resp 16 Wt 54.7 kg (120 lb 9.5 oz) SpO2 96% BMI 22.98 kg/m? GENERAL: Patient is a well developed, well nourished female. She is alert, oriented, pleasant, and cooperative. SKIN: Color, texture, turgor normal. No rashes or lesions. HEENT: Normocephalic, atraumatic, mucus membranes moist, and no lesions NECK: Supple, no adenopathy; thyroid symmetric, normal size, no bruits, Not examined LUNGS: Clear to auscultation bilaterally. HEART: Regular rate and rhythm, no murmurs. ABDOMEN: Abdomen soft, non-tender, no hepatosplenomegaly. PELVIC: No lesions noted to vulva. Vaginal canal shortened, significant scarring noted, unable to visualize cervix, pap obtained from foreshortened vagina, mild bleeding with pa (more content not included)... [facility] 12-28-2024 Telephone encounter Note LM for patient to call back and confirm message for 01/25/25 at 1pm. Per Tory [facility] 12-28-2024 Miscellaneous Notes LM for patient to call back and confirm message for 01/25/25 at 1pm. Mason Spears Hi there, We had gotten a referral for Meenu from Dr. Nuno. Can you please review and see what she needs. Thank you. Miladis documented in this encounter [facility] 12-28-2024 Telephone encounter Note Hi there, We had gotten a referral for Meenu from Dr. Nuno. Can you please review and see what she needs. Thank you. Miladis [facility] 12-14-2024 History of Presen t illness Narrative Meenu Holder is a 79 y.o. female No ref. provider found presents with chief complaint of Thyroid Problem and Follow-up (LAB) HPI: History of Present Illness The patient is a 79-year-old female who presents for follow-up of her thyroid. She has been on a regimen of methimazole 5 mg for the past 5 days. She reports no significant changes in her condition since her last visit 6 months ago. Results Laboratory Studies TSH is 2.12. Free T4 is 1.1 (range 0.8-1.8). Free T3 is 3.1 (range 2.3-4.1). IM 06/2024 follow up visit on 06/15/2024 for lab done TSH 1.64, FT4 1.0 (0.8-1.8), FT3 3(2-4.4), on methimolaze 5mg 5 days a week. IM 12/2023 follow up visit on 12/16/2023 for lab done TSH 1.59 , FT4 1 (0.8-1.8), FT3 3(2-4.4), on methimolaze 5mg 5 days a week IM 06/2023 follow up visit on 06/17/2023 for lab done TSH 1.69 , FT4 1.1(0.8-1.8), FT3 3.2(2-4.4), on methimolaze 5mg 5 days a week IM 12/2022 follow up visit on 12/10/2022 for lab done TSH 1.86 , FT4 1(0.8-1.8), FT3 3.1(2-4.4) , on methimolaze 5m g daily 5 days a week IM 06/2022 follow up visit on 06/09/2022 for lab done on 06/2022 TSH 2.33 , FT4 1.1(0.8-1.8), FT3 3.3(2-4.4) , on methimolaze 5m g daily 6 days a week, plan to see Dr. Pyle for MNG IM 01/2022 follow up visit on 02/24/2022 for lab done on 10/10/2021 TSH 4.03, FT4 1.23 (0.8-1.8), FT3 3.4(2-4.4) , on methimolaze 5m g daily IM 10/2021 follow up visit on 10/08/2021 no new lab , on methimolaze 5m g daily, lab on 06/2022 TSH 2.41, FT4 1.4( 0.8-1.80), FT3 2.76( 2-4.4) IM 06/2021 follow up visit on 06/24/2021 no new lab , on methimolaze 5m g daily, no new lab, lab on 03/2021 wnl IM 03/2021 follow up visit on 03/25/2021 no new lab , on methimolaze 5m g daily HPI: 12/2020 New patient sent from Dr. Abel Pyle for hyperthyroidism, TSH 0.02, T4 10.3 (5-11), free T3 mildly high 3.4 (1.4-3.8) and she had ultrasound but then she had biopsy done by Dr. Verma in [place] and thyroid scan uptake done. Right lobe is more uptake than left lobe, 6 hours, 31%, 24 hours 51%, mildly high uptake. Has status biopsy, benign thyroid nodules. She is only on blood pressure medication, and denies heart disease. She has history of ovarian cancer. SUBJECTIVE: MEDICATIONS: Current Outpatient Medications Medication Instructions amLODIPine (NORVASC) 10 mg, Oral, Daily lisinopril 10 mg, Oral, Daily methIMAzole (TAPAZOLE) 5 mg, Oral, Daily in the morning ALLERGIES: No Known Allergies Past Medical History: Diagnosis Date Cervical cancer (CMS/HCC) Hypertension (CMS/HCC) Hyperthyroidism (CMS/HCC) Nephrolithiasis 04/27/2021 Thyroid nodule (CMS/HCC) Past Surgical History: Procedure Laterality Date FNA W IMAGING GUIDANCE 08/20/2023 thyroid FNA REVIEW OF SYMPTOMS: 14 POINT OF SYSTEM REVIEWED AND NEGATIVE OBJECTIVE: 09/16/2023 2:14 PM 12/16/2023 11:23 AM 12/23/2023 11:27 AM 01/27/2024 11:01 AM 06/15/2024 11:07 AM 09/21/2024 2:06 PM 12/14/2024 10:48 AM Vitals BMI 20.9 kg/m2 22.31 kg/m2 21.26 kg/m2 20.9 kg/m2 22.68 kg/m2 22.31 kg/m2 22.86 kg/m2 BSA (m2) 1.54 m2 1.56 m2 1.56 m2 1.54 m2 1.57 m2 1.56 m2 1.57 m2 Systolic 124 130 122 135 124 136 138 Diastolic 73 74 74 70 84 80 82 Heart Rate 67 84 59 81 72 SpO2 97 % 95 % 96 % Resp 16 16 16 Height (in) 5' 3 5' 2 5' 3 5' 3 5' 2 5' 2 5' 2 Weight (lb) 118 122 120 118 124 122 125 Visit Report Report Report Report Report Report Report Physical Exam Constitutional: Appearance: Normal appearance. She is normal weight. HENT: Head: Normocephalic and atraumatic. Right Ear: External ear normal. Nose: Nose normal. Mouth/Throat: Pharynx: Oropharynx is clear. Eyes: Extraocular Movements: Extraocular movements intact. Pupils: Pupils are equal, round, and reactive to light. Cardiovascular: Rate and Rhythm: Normal rate and regular rhythm. Pulmonary: Effort: Pulmonary effort is normal. Abdominal: General: Abdomen is flat. Palpations: Abdomen is soft. Musculoskeletal: General: Normal range of motion. Skin: General: Skin is warm. Neurological: General: No focal deficit present. Mental Status: She is alert. Psychiatric: Mood and Affect: Mood normal. Behavior: Behavior normal. ASSESSMENT AND PLAN: Assessment/Plan Diagnoses and all orders for this visit: Hyperthyroidism (CMS/HCC) - T3, free; Future - T4, free; Future - TSH; Future Multinodular goiter (CMS/HCC) To follow with Dr. Etienne, had history of FNA before. 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 Thyroid disorder. Her blood work results are within normal limits, with a TSH level of 2.12, free T4 at 1.1, and free T3 at 3.1. She will continue her current regimen of methimazole 5 mg, to be taken 5 days a week. A follow-up blood work will be conducted prior to her next visit in 6 months. Follow-up The patient will follow up in 6 months. documented in this encounter [facility] 09-21-2024 History of Presen t illness Narrative Subjective Patient ID: Meenu Holder is a 79 y.o. female who presents for Thyroid Nodule 6 mo thyroid US shows no sig change in overall size of thyroid or in the size of individual nodules. Family History Problem Relation Name Age of Onset Mental illness Mother Dementia Mother Hypertension Father Hypertension Daughter Hypertension Daughter Active Ambulatory Problems Diagnosis Date Noted Abnormal ultrasound 07/22/2023 Essential hypertension (CMS/HCC) 07/22/2023 Multinodular goiter (CMS/HCC) 07/22/2023 PAC (premature atrial contraction) 07/22/2023 PVC's (premature ventricular contractions) 07/22/2023 Hyperthyroidism (CMS/HCC) 07/22/2023 Thyroid nodule (CMS/HCC) 07/22/2023 Thyrotoxicosis (CMS/HCC) 07/22/2023 Cancer of endocervix (CMS/HCC) 06/04/2016 Malnutrition of moderate degree (CMS/HCC) 07/09/2016 Resolved Ambulatory Problems Diagnosis Date Noted No Resolved Ambulatory Problems Past Medical History: Diagnosis Date Cervical cancer (CMS/HCC) Hypertension (CMS/HCC) Nephrolithiasis 04/27/2021 Past Surgical History: Procedure Laterality Date FNA W IMAGING GUIDANCE 08/20/2023 thyroid FNA No Known Allergies Current Outpatient Medications on File Prior to Visit Medication Sig Dispense Refill amLODIPine (Norvasc) 10 MG tablet Take 1 tablet (10 mg) by mouth Daily 90 tablet 3 lisinopril 10 MG tablet Take 1 tablet (10 mg) by mouth Daily 100 tablet 3 methIMAzole (Tapazole) 5 MG tablet TAKE ONE TABLET BY MOUTH ONCE A DAY -FIVE DAYS OF THE WEEK 80 tablet 0 No current facility-administered medications on file prior to visit. Objective Last Recorded Vitals Vitals: 09/21/24 1406 BP: 136/80 Pulse: 81 ENT Physical Exam Constitutional Appearance: patient appears well-developed, well-nourished and well-groomed, Communication/Voice: communication appropriate for developmental age; vocal quality normal; Assessment/Plan Diagnoses and all orders for this visit: Multinodular goiter (CMS/HCC) Stable MNG. Repeat US one yea documented in this encounter [facility] 06-15-2024 History of Presen t illness Narrative Meenu Holder is a 78 y.o. female Neil Vazquez MD presents with chief complaint of Thyroid Problem and Follow-up HPI: IM 06/2024 follow up visit on 06/15/2024 for lab done TSH 1.64, FT4 1.0 (0.8-1.8), FT3 3(2-4.4), on methimolaze 5mg 5 days a week. IM 12/2023 follow up visit on 12/16/2023 for lab done TSH 1.59 , FT4 1 (0.8-1.8), FT3 3(2-4.4), on methimolaze 5mg 5 days a week IM 06/2023 follow up visit on 06/17/2023 for lab done TSH 1.69 , FT4 1.1(0.8-1.8), FT3 3.2(2-4.4), on methimolaze 5mg 5 days a week IM 12/2022 follow up visit on 12/10/2022 for lab done TSH 1.86 , FT4 1(0.8-1.8), FT3 3.1(2-4.4) , on methimolaze 5m g daily 5 days a week IM 06/2022 follow up visit on 06/09/2022 for lab done on 06/2022 TSH 2.33 , FT4 1.1(0.8-1.8), FT3 3.3(2-4.4) , on methimolaze 5m g daily 6 days a week, plan to see Dr. Pyle for MNG IM 01/2022 follow up visit on 02/24/2022 for lab done on 10/10/2021 TSH 4.03, FT4 1.23 (0.8-1.8), FT3 3.4(2-4.4) , on methimolaze 5m g daily IM 10/2021 follow up visit on 10/08/2021 no new lab , on methimolaze 5m g daily, lab on 06/2022 TSH 2.41, FT4 1.4( 0.8-1.80), FT3 2.76( 2-4.4) IM 06/2021 follow up visit on 06/24/2021 no new lab , on methimolaze 5m g daily, no new lab, lab on 03/2021 wnl IM 03/2021 follow up visit on 03/25/2021 no new lab , on methimolaze 5m g daily HPI: 12/2020 New patient sent from Dr. Abel Pyle for hyperthyroidism, TSH 0.02, T4 10.3 (5-11), free T3 mildly high 3.4 (1.4-3.8) and she had ultrasound but then she had biopsy done by Dr. Verma in [place] and thyroid scan uptake done. Right lobe is more uptake than left lobe, 6 hours, 31%, 24 hours 51%, mildly high uptake. Has status biopsy, benign thyroid nodules. She is only on blood pressure medication, and denies heart disease. She has history of ovarian cancer. SUBJECTIVE: MEDICATIONS: Current Outpatient Medications Medication Instructions amLODIPine (NORVASC) 10 mg, Oral, Daily lisinopril 10 mg, Oral, Daily methIMAzole (Tapazole) 5 MG tablet TAKE 1 TABLET BY MOUTH ONCE DAILY FOR 5 DAYS PER WEEK ALLERGIES: No Known Allergies Past Medical History: Diagnosis Date Cervical cancer (CMS/HCC) Hypertension (CMS/HCC) Hyperthyroidism (CMS/HCC) Nephrolithiasis 04/27/2021 Thyroid nodule (CMS/HCC) Past Surgical History: Procedure Laterality Date FNA W IMAGING GUIDANCE 08/20/2023 thyroid FNA REVIEW OF SYMPTOMS: 14 POINT OF SYSTEM REVIEWED AND NEGATIVE OBJECTIVE: Visit Vitals BP 124/84 Pulse 59 Resp 16 Ht 5' 2 Wt 124 lb BMI 22.68 kg/m Smoking Status Never BSA 1.57 m Physical Exam Constitutional: Appearance: Normal appearance. She is normal weight. HENT: Head: Normocephalic and atraumatic. Right Ear: External ear normal. Nose: Nose normal. Mouth/Throat: Pharynx: Oropharynx is clear. Eyes: Extraocular Movements: Extraocular movements intact. Pupils: Pupils are equal, round, and reactive to light. Cardiovascular: Rate and Rhythm: Normal rate and regular rhythm. Pulmonary: Effort: Pulmonary effort is normal. Abdominal: General: Abdomen is flat. Palpations: Abdomen is soft. Musculoskeletal: General: Normal range of motion. Skin: General: Skin is warm. Neurological: General: No focal deficit present. Mental Status: She is alert. Psychiatric: Mood and Affect: Mood normal. Behavior: Behavior normal. ASSESSMENT AND PLAN: Assessment/Plan Diagnoses and all orders for this visit: Hyperthyroidism (CMS/HCC) - T3, free; Future - T4, free; Future - TSH; Future - Hepatic function panel; Future Due to autoimmune disease, Continue with methimazole 5 mg 5 days a week Multinodular goiter (CMS/HCC) Status post FNA by Dr. 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 documented in this encounter [facility] 09-16-2023 History of Presen t illness Narrative Subjective Patient ID: Meenu Holder is a 78 y.o. female who presents for Thyroid Nodule (Follow up FNA 08/20/23). FNA of meryl nodules benign. Review of Systems All other systems reviewed and are negative. Family History Problem Relation Name Age of Onset Mental illness Mother Dementia Mother Hypertension Father Active Ambulatory Problems Diagnosis Date Noted Abnormal ultrasound 07/22/2023 Essential hypertension (CMS/HCC) 07/22/2023 Multinodular goiter (CMS/HCC) 07/22/2023 PAC (premature atrial contraction) 07/22/2023 PVC's (premature ventricular contractions) 07/22/2023 Hyperthyroidism (CMS/HCC) 07/22/2023 Thyroid nodule (CMS/HCC) 07/22/2023 Thyrotoxicosis (CMS/HCC) 07/22/2023 Resolved Ambulatory Problems Diagnosis Date Noted No Resolved Ambulatory Problems Past Medical History: Diagnosis Date Cervical cancer (CMS/HCC) Hypertension (CMS/HCC) Nephrolithiasis 04/27/2021 Past Surgical History: Procedure Laterality Date FNA W IMAGING GUIDANCE 08/20/2023 thyroid FNA No Known Allergies Current Outpatient Medications on File Prior to Visit Medication Sig Dispense Refill amLODIPine (Norvasc) 10 MG tablet lisinopril 10 MG tablet Take 1 tablet (10 mg) by mouth in the morning. 100 tablet 3 methIMAzole (Tapazole) 5 MG tablet TAKE 1 TABLET BY MOUTH ONCE DAILY FOR 5 DAYS PER WEEK [DISCONTINUED] lisinopril 10 MG tablet Take 1 tablet by mouth once daily 100 tablet 3 No current facility-administered medications on file prior to visit. Objective Last Recorded Vitals Vitals: 09/16/23 1414 BP: 124/73 ENT Physical Exam Constitutional Appearance: patient appears well-developed, well-nourished and well-groomed, Communication/Voice: communication appropriate for developmental age; vocal quality normal; Assessment/Plan Diagnoses and all orders for this visit: Multinodular goiter (CMS/HCC) Very reassuring FNAs. Resume periodic US. 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) documented in [facility] encounter [facility]* Diagnosis Multinodular goiter (CMS/HCC)- Primary Nontoxic multinodular goiter documented in this encounter [facility]* Diagnosis Hyperthyroidism (CMS/HCC)- Primary Thyrotoxicosis without mention of goiter or other cause, without mention of thyrotoxic crisis or storm Multinodular goiter (CMS/HCC) Nontoxic multinodular goiter 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) documented in this encounter [facility]* Diagnosis History of cervical cancer- Primary Personal history of malignant neoplasm of cervix uteri Vaginal bleeding Other specified noninflammatory disorder of vagina Vaginal adhesions Stricture or atresia of vagina Radiation proctitis Other specified disorder of rectum and anus Other urinary incontinence Hemorrhoids, unspecified hemorrhoid type Screening due [facility] History of cervical cancer- Primary Personal history of malignant neoplasm of cervix uteri documented in this encounter [facility] Summary Purpose Family History No Family History Records FoundNo Family History Records FoundNo Family History Records FoundNo Family History Records FoundNo Family History Records FoundNo Family History Records FoundNo Family History Records FoundNo Family History Records Found Advance Directives No Advanced Directives Records FoundNo Advanced Directives Records FoundNo Advanced Directives Records FoundNo Advanced Directives Records FoundNo Advanced Directives Records FoundNo Advanced Directives Records FoundNo Advanced Directives Records FoundNo Advanced Directives Records Found Additional Source Comments INFORMATION SOURCE (unrecogn ized section and content) DATE CREATED AUTHOR 07/18/2020 [facility] DATE CREATED AUTHOR AUTHOR'S ORGANIZ ATION 10/15/2021 [facility] [place] [facility] DATE CREATED AUTHOR AUTHOR'S ORGANIZ ATION 02/08/2022 [facility] DATE CREATED AUTHOR AUTHOR'S ORGANIZ ATION 09/15/2023 [facility] DATE CREATED AUTHOR AUTHOR'S ORGANIZ ATION 09/21/2024 [facility] DATE CREATED AUTHOR AUTHOR'S ORGANIZ ATION 12/29/2024 [facility] d[facility] Specialists [facility] DATE CREATED AUTHOR AUTHOR'S ORGANIZ ATION 12/30/2024 [facility] DATE CREATED AUTHOR AUTHOR'S ORGANIZ ATION 02/12/2025 [facility] Teams (unrecognized sec tion and content) Team Status: Inactive Member Role Status Dates Abel Pyle Jr, MD Attending Provider Active Start: August 20, 2023 End: August 20, 2023 Wall Taper Relationship Specialty Start Date End Date Drew Nuno MD [address] [place] [address] PCP - ACO Reach 12/25/22 Drew Nuno MD [address] [place] [address] PCP - General Internal Medicine 12/09/22 Wall Taper Relationship Specialty Start Date End Date Drew Nuno MD [address] [place] [address] PCP - ACO Reach 12/25/22 Drew Nuno MD [address] [place] [address] PCP - General Internal Medicine 12/09/22 Wall Taper Relationship Specialty Start Date End Date Drew Nuno MD [address] [place] [address] PCP - General Internal Medicine 12/09/22 Drew Nuno MD [address] [place] [address] PCP - ACO Reach 12/02/23 Wall Taper Relationship Specialty Start Date End Date Drew Nuno MD [address] [place] [address] PCP - General Internal Medicine 12/09/22 Drew Nuno MD [address] [place] [address] PCP - ACO Reach 12/02/23 Wall Taper Relationship Specialty Start Date End Date Drew Nuno MD [address] [place] [address] PCP - General Internal Medicine 12/09/22 Drew Nuno MD [address] [place] [address] PCP - ACO Reach 12/02/23 Wall Taper Relationship Specialty Start Date End Date Drew Nuno MD [address] [place] [address] PCP - General Internal Medicine 12/09/22 Drew Nuno MD [address] [place] [address] PCP - ACO Reach 12/02/23 Wall Taper Relationship Specialty Start Date End Date Drew Nuno MD [address] [place] [address] PCP - General Internal Medicine 12/09/22 Drew Nuno MD [address] [place] [address] PCP - ACO Reach 12/02/23 Wall Taper Relationship Specialty Start Date End Date Drew Nuno MD [address] [place] [address] PCP - General Internal Medicine 12/09/22 Drew Nuno MD [address] [place] [address] PCP - ACO Reach 12/02/23 Goals (unrecognized section and content) Goals may be documented in a n alternate section Reason for Visit (unrecogniz ed section and content) Reason Comments Thyroid Nodule Follow up FNA 4 Reason Comments Thyroid Problem Follow-up Reason Comments Thyroid Nodule Reason Comments Thyroid Problem Follow-up LAB Reason Comments Consult Source Comments (unrecognize d section and content) In the event this informatio n is protected by the Federal Confidentiality of Alcohol and Drug Abuse Patient Records regulations: The Federal rules restrict any use of the information to criminally investigate or prosecute any alcohol or drug abuse patient.[facility] the event this information is protected by the Federal Confidentiality of Alcohol and Drug Abuse Patient Records regulations: The Federal rules restrict any use of the information to criminally investigate or prosecute any alcohol or drug abuse patient.[facility] the event this information is protected by the Federal Confidentiality of Alcohol and Drug Abuse Patient Records regulations: The Federal rules restrict any use of the information to criminally investigate or prosecute any alcohol or drug abuse patient.[facility] the event this information is protected by the Federal Confidentiality of Alcohol and Drug Abuse Patient Records regulations: The Federal rules restrict any use of the information to criminally investigate or prosecute any alcohol or drug abuse patient.[facility] FOR RECORDS PERTAINING TO PATIENTS WHO ARE OR HAVE BEEN ENROLLED IN A CHEMICAL DEPENDENCY/SUBSTANCEABUSE PROGRAM, SOME INFORMATION MAY BE OMITTED. This clinical summary was aggregated from multiple sources. Caution should be exercised in using it in the provision of clinical care. This summary normalizes information from multiple sources, and as a consequence, information in this document may materially change the coding, format and clinical context of patient data. In addition, data may be omitted in some cases. CLINICAL DECISIONS SHOULD BE BASED ON THE PRIMARY CLINICAL RECORDS. [facility]. provides no warranty or guarantee of the accuracy or completeness of information in this document.
[2025-02-28 08:49] LABS: Estimated GFR (African America 55 (>=60 mL/min/1.73m^2); Estimated GFR (Non-African Ame 46 (>=60 mL/min/1.73m^2)
== END 2025-02-28 08:29 | disposition home or self-care (01) ==
LOC: LAB 08:28
PROVIDERS: Pathology Anatomic Pathology & Clinical Pathology; PCP Internal Medicine
DX: N93.9 Abnormal uterine and vaginal bleeding, unspecified (principal); N89.5 Stricture and atresia of vagina; Z85.41 Personal history of malignant neoplasm of cervix uteri; D41.21 Neoplasm of uncertain behavior of right ureter
CPT/HCPCS: 36415; 72197; 82565; A9575